=== PATIENT | female | born 1960 | race Caucasian/White ===

== ENCOUNTER → 2017-11-02 | Outpatient (CLI) | payer OTHER, BC ==
[~2017-11-02] VITALS: Ht 160 cm; Wt 95.1 kg
[~2017-11-02] MED LIST: AMLODIPINE BESY10 MG PO; EFFEXOR XR75 MG PO; ESTRACE2 MG PO; FENOFIBRATE160 MG PO; GLIPIZIDE XL10 MG PO; LANTUS SOL100 UNIT/1 SUBQ; LIPITOR 20 MG T20 M1 PO; LISINOPRIL10 MG PO; METFORMIN HCL1000 MG PO; MORPHINE SULFAT15 M3 PO; MS CONTIN15 MG PO; PLAVIX 75 MG TA75 M1 PO; PREDNISONE 1 MG1 M1 PO; PREDNISONE 5 MG5 M1 PO; VOLTAREN GEL 1100 G2 TOP; ZYRTEC10 M4 PO
--- NOTE | ~2017-11-02 | HPC ---
[facility] [place] [address] PAIN MANAGEMENT CONSULTATION Name: AZIZACHUCK Room #: REG CL MTiffanieR.#: [id number] Admission: 11/02/17 Attend Phys: Juma Rajan DO Discharge: Date of : 56 Report #: [id number] THIS REPORT FOR: //name// CC: ELISHA Rajan Physician staff DATE OF SERVICE: 11/02/2017 CHIEF COMPLAINT: Bilateral hand pain, bilateral knee pain, bilateral shoulder pain. HISTORY OF PRESENT ILLNESS: As you know, the patient is a 57-year-old female with longstanding history of pain involving the weightbearing joints due to rheumatoid arthritis. She follows with [facility] for rheumatologic treatments, but they are unwilling to provide the patient any treatment for pain management. The patient was receiving pain medications from her primary care physician, but had a change in her PCP's recently. She was referred to our clinic for medication management. She takes MS Contin 15 mg twice a day, utilizing MSIR 7.5 mg twice a day p.r.n. breakthrough pain. She states she has been on this medication for a long period of time and has noted good benefit. She returns today requesting refill on medications. She was seen by my partner, Dr. Flakito Rajan, originally and transferred to my services due to Dr. Flakito Rajan leaving our clinic. She describes today pain is burning, stabbing, constant, throbbing, places current pain score 5/10. States movement, lifting and bending exacerbate symptoms, rest and medications tend to improve pain. She has returned today in followup visit for refill of medications. ALLERGIES: ACETAMINOPHEN. CURRENT MEDICATIONS: 1. Diclofenac, morphine sulfate continuous release. 2. Morphine sulfate immediate release. 3. Zyrtec. 4. Prednisone. 5. Estradiol. 6. Lisinopril. 7. Glipizide. 8. Venlafaxine. 9. Metformin. 10. Plavix. 11. Insulin. 12. Amlodipine. 13. Fenofibrate. 14. Atorvastatin. [address] [address] PAIN MANAGEMENT CONSULTATION Name: CHUCK RAJAN Room #: REG [facility].#: [id number] Admission: 11/02/17 Attend Phys: Juma Rajan DO Discharge: Date of : 56 Report #: [id number] SOCIAL HISTORY: The patient denies tobacco, alcohol, IV or illicit drug use. She has been out of the work force since 1998. She is unaccompanied today. IMAGING: No new imaging available. PQRS: The patient has known rheumatoid arthritis. She also has symptoms of osteoarthritis. She is not a fall risk, has not had a fall in the last 3 months. She is placing pain score at 5/10. She is treated for hypertension and is on blood thinners. Pain impact score is 34/70. Pain is rated at 5/10. PHYSICAL EXAMINATION: VITAL SIGNS: Blood pressure 127/73, pulse 80, respiratory rate 16 and unlabored, the patient 98% on room air. Height 5 feet 3 inches tall, weight 209 pounds, BMI calculated 37.1. GENERAL: Well-developed, well-nourished, well-hydrated exogenously obese 57-year-old female, appearing stated age, placing pain score today 5/10. HEENT: Normocephalic, atraumatic. Pupils equal, round, reactive to light. Extraocular muscles are intact. Sclerae nonicteric, without injection. NEUROLOGIC: Cranial nerves 2-12 grossly intact. Speech is fluent. EXTREMITIES: Show no clubbing, no cyanosis, no edema. MUSCULOSKELETAL: There is palpatory tenderness over the shoulders bilaterally. There is noted decreased range of motion of the shoulders secondary to pain. There is palpatory tenderness over the knees and the lower back as well. No gross joint deformities. Weightbearing causes intensification of bilateral knee and bilateral hip pain. ASSESSMENT: 1. Rheumatoid arthritis affecting hands, knees and shoulders. 2. Complex medication management. 3. Chronic lumbar radiculopathy. 4. Chronic intractable pain. PLAN: 1. The patient returns today in followup visit for medication management. The patient's medications were initiated before seeing my partner, Dr. Flakito Rajan, then transferred to Dr. Rajan at our clinic at [facility]. Due to changes in Dr. Rajan's schedule, the patient was transferred to my clinic for ongoing medication management. The patient does follow with Rheumatology for which she receives infusions and medication for her rheumatologic issues. She returns specifically for medication management. 2. The patient was provided prescription of MS Contin 15 mg dose 1 tab p.o. b.i.d. I have given the patient releases of today, 4 weeks from today, 8 weeks from today, 3 months' worth of medication. The patient denies any side effects to medication, does feel they are beneficial. 3. We reviewed the fact that opiate medications are being used to provide [facility] [address] [place] [address] PAIN MANAGEMENT CONSULTATION Name: CHUCK RAJAN Room #: REG CLI Paieg#: [id number] Admission: 11/02/17 Attend Phys: Juma RajanDO Discharge: Date of : 56 Report #: [id number] analgesia adequate to support activities of daily living, not attempting to achieve a specific pain score on the 0-10 Visual Analog Scale. The current opiate medications are providing sufficient analgesia to allow the patient to participate in activities of daily living. The patient is not exhibiting any aberrant behavior suggestive of drug diversion. The patient is not having any adverse reactions to medications. The patient is not suffering from daytime somnolence or mental acuity changes. The patient is managing opiate-induced constipation with appropriate qumk-zdn-pytpzgd agents and dietary considerations. The patient was counseled on concern for caution with operating a motor vehicle while using opiate medications. A physical exam was performed and the patient's functional status was evaluated. All patients with back pain were advised against the bed rest greater than 4 days and were advised to return to normal activities. Pain score assessment was noted and the treatment plan was reviewed with the patient. All current medications, both prescribed and OTC were reviewed and reconciled on the electronic medical record. Tobacco screening was accomplished and smoking cessation was advised when indicated. BMI was noted and diet/exercise modification was recommended for all patients following outside normal parameters. I reviewed with the patient today their responsibilities to safeguard prescription medications, reviewed their responsibility to utilize medications only as prescribed by the physician. They are to seek and receive pain medications only from 1 physician group ( [facility]). They are to use 1 pharmacy and keep the clinic informed if they change pharmacies. Their responsibilities include making followup visits in a timely fashion and to avoid abrupt discontinuation of medication usage. Their responsibilities further include bringing their medications (bottles from the pharmacy with residual pills) to the visit for possible confirmation of pill counts and the patient understands it is their responsibility to submit to random drug screens to ensure both that the medications prescribed are present, and that no other controlled substances are present. All prescriptions provided today were generated electronically. 4. The patient was provided prescription of MS IR 15 mg dose one-half tab p.o. b.i.d. I have given the patient #30 tablets, releases of today, 4 weeks from today, 8 weeks from today, 3 months' worth of medication. 5. The patient will return to our clinic in 3 months for medication management and discuss possible alteration in therapy depending on changes in CDC's policy. <ELECTRONICALLY SIGNED> By: Juma Rajan DO 11/09/17 [id number] Juma Rajan DO /nt
[2017-11-02 09:49] VITALS: BP 127/73
== END ==
LOC: PAIN 07:15
DX: M06.842 Other specified rheumatoid arthritis, left hand (principal); M06.841 Other specified rheumatoid arthritis, right hand; M06.862 Other specified rheumatoid arthritis, left knee; M06.861 Other specified rheumatoid arthritis, right knee; M06.812 Other specified rheumatoid arthritis, left shoulder; M06.811 Other specified rheumatoid arthritis, right shoulder; M54.16 Radiculopathy, lumbar region; G89.4 Chronic pain syndrome; Z79.899 Other long term (current) drug therapy

== ENCOUNTER → 2018-01-25 | Outpatient (CLI) | payer OTHER, BC ==
[~2018-01-25] VITALS: Ht 160 cm; Wt 95.3 kg
--- NOTE | ~2018-01-25 | HPC ---
[facility] [address] [place] [address] PAIN MANAGEMENT CONSULTATION Name: CHUCK ERVIN Room #: REG [facility] Louann.#: [id number] Admission: 01/25/18 Attend Phys: Elina Lopez Discharge: Date of : 56 Report #: [id number] THIS REPORT FOR: //name// CC: Elina ROSAS Physician staff DATE OF SERVICE: 01/25/2018 CHIEF COMPLAINT: Bilateral hand pain, bilateral knee pain, bilateral shoulder pain. HISTORY OF PRESENT ILLNESS: This is a 57-year-old female with longstanding history of pain in all of her joints due to her rheumatoid arthritis. She tells me that her shoulder pain has increased over the last few months and that is her major complaint today, though she does tell me that her knees and hips also hurt. The patient tells me that she used to get her shoulders injected by orthopedic that has been several years ago. She had a recent x-ray done at [facility] though that is not with her presently today and would like another injection as well as a refill of her medications. The patient tells me she has a pain score today of 5/10. Her pain is worse with moving, lifting, bending, but the medication and the rest do help her. The patient would like a refill and an injection in her shoulders today. ALLERGIES: ACETAMINOPHEN. LIST OF CURRENT MEDICATIONS: Morphine sulfate IR half a tablet twice a day, MS Contin 15 mg twice a day, diclofenac gel as needed to extremities, Zyrtec 10 mg daily, prednisone 5 mg daily, prednisone 1 mg twice a day, Estrace 2 mg tablets daily, Zestril 20 mg daily, glipizide 20 mg daily, Effexor XR 75 mg daily, metformin 1000 mg twice a day, Plavix 75 mg daily, Lantus varying dose at bedtime, amlodipine 10 mg daily, fenofibrate 160 mg daily and Lipitor 20 mg at bedtime. PQRS: She has a history of osteoarthritis in her shoulders, knees and hips and rheumatoid arthritis in all of her joints as well and is being treated for arthritis. Height is 5 feet 3 inches, weight is 210 pounds, BMI is 37.2. Vital signs: Blood pressure 147/90, pulse is 81, respirations 16, oxygen sat is 98, pain score is 5/10. Fall risk: Denies dizziness. Does not need help walking or standing. Has not fallen in the last 3 months. The patient takes Plavix as a blood thinner and has medicines for hypertension. Her opioid therapy is greater than 6 weeks; therefore, an opioid signed contract is on the chart. Her risk assessment tool is low and her functional assessment is 24/70. Recreational drug use, she denies. She does not smoke currently, but has in the past and does not drink alcohol. We checked her prescription monitoring system, the patient is filling appropriately from doctors in our clinic for all of her [address] [address] PAIN MANAGEMENT CONSULTATION Name: CHUCK ERVIN Room #: REG JANINE Gibson#: [id number] Admission: 01/25/18 Attend Phys: Elina Lopez Discharge: Date of : 56 Report #: [id number] narcotics. The patient tells me she does safeguard her medications. PHYSICAL EXAMINATION: GENERAL: This is a well-developed, well-nourished, well-hydrated, exogenous obese 57-year-old that appears her stated age. Placing her pain score today 5/10. HEENT: Normocephalic, atraumatic. Pupils equal, round and reactive to light. Extraocular muscles are intact. EXTREMITIES: No clubbing, no cyanosis, no edema. MUSCULOSKELETAL: There is diffuse tenderness over bilateral shoulders, knees and back. Gait is tandem, mostly antalgic. The patient does complain of burning in her joints as well. IMPRESSION: 1. Chronic lumbar radiculopathy, rheumatoid arthritis affecting hands, knees and shoulders. 2. Traumatic brain injury. 3. Complex medical management. 4. Chronic intractable pain. 5. History of myocardial infarction. We reviewed the fact that opiate medications are being used to provide analgesia adequate to support activities of daily living, not attempting to achieve a specific pain score on the 0-10 Visual Analog Scale. The current opiate medications are providing sufficient analgesia to allow the patient to participate in activities of daily living. The patient is not exhibiting any aberrant behavior suggestive of drug diversion. The patient is not having any adverse reactions to medications. The patient is not suffering from daytime somnolence or mental acuity changes. The patient is managing opiate-induced constipation with appropriate zftc-zit-cdkjddr agents and dietary considerations. The patient was counseled on concern for caution with operating a motor vehicle while using opiate medications. A physical exam was performed and the patient's functional status was evaluated. All patients with back pain were advised against the bed rest greater than 4 days and were advised to return to normal activities. Pain score assessment was noted and the treatment plan was reviewed with the patient. All current medications, both prescribed and OTC were reviewed and reconciled on the electronic medical record. Tobacco screening was accomplished and smoking cessation was advised when indicated. BMI was noted and diet/exercise modification was recommended for all patients following outside normal parameters. I reviewed with the patient today their responsibilities to safeguard prescription medications, reviewed their responsibility to utilize medications only as prescribed by the physician. They are to seek and receive pain [facility] [address] [place] [address] PAIN MANAGEMENT CONSULTATION Name: CHUCK ERVIN [facility] #: [facility]#: [id number] Admission: 01/25/18 Attend Phys: Elina Lopez Discharge: Date of : 56 Report #: [id number] medications only from 1 physician group ( [facility]). They are to use 1 pharmacy and keep the clinic informed if they change pharmacies. Their responsibilities include making followup visits in a timely fashion and to avoid abrupt discontinuation of medication usage. Their responsibilities further include bringing their medications (bottles from the pharmacy with residual pills) to the visit for possible confirmation of pill counts and the patient understands it is their responsibility to submit to random drug screens to ensure both that the medications prescribed are present, and that no other controlled substances are present. All prescriptions provided today were generated electronically. PLAN: 1. The patient's treatment options were discussed today. The patient would like a refill of her morphine sulfate and tells me that it is working well in controlling her pain. Script was given today for morphine sulfate 15 mg ER, #60 for today and 4-week and 8-week release. Scripts also for MS IR 15 mg a half a tablet twice a day, quantity 30 for today, 4-week and 8-week release. 2. The patient would like to have her shoulders injected. I discussed with the patient that she is being seen for medication management only today. We would need to schedule another appointment for shoulder injection plus the patient is on Plavix. The patient tells me she is seeing her chairman & ceo tomorrow. It has been 1 year since she has been on Plavix and is hopeful to be taken off of it for good after tomorrow. I instructed the patient to have in writing from the chairman & ceo that it is okay for her to be off her Plavix for 7 days if he does keep her on this medicine longer than tomorrow. If she is off of it for a good starting tomorrow, then there will be no problem in giving her shoulder injection in February. 3. We have no recent films or x-ray reports from shoulder injections. The patient tells me she did have one done about a month ago at [facility]. She is seeing her primary doctor on 02/02/2018. The patient will obtain those results and film and bring it to her appointment in February with Dr. Ervin for her shoulder injection. The patient is agreeable with this plan of care. 4. Appointment will be made for early in the New Year. The patient is seen today in collaboration with Dr. Juma Ervin. <ELECTRONICALLY SIGNED> By: Elina Lopez 01/26/18 0724 [id number] [id number] Elina Lopez /gricel
[2018-01-25 09:54] VITALS: BP 147/90
== END ==
LOC: PAIN 09:27
DX: M06.842 Other specified rheumatoid arthritis, left hand (principal); M06.841 Other specified rheumatoid arthritis, right hand; M06.862 Other specified rheumatoid arthritis, left knee; M06.861 Other specified rheumatoid arthritis, right knee; M06.811 Other specified rheumatoid arthritis, right shoulder; M06.812 Other specified rheumatoid arthritis, left shoulder; G89.4 Chronic pain syndrome; M54.16 Radiculopathy, lumbar region; I25.2 Old myocardial infarction; Z79.899 Other long term (current) drug therapy

== ENCOUNTER → 2018-02-15 | Outpatient (CLI) | payer OTHER, BC ==
[~2018-02-15] VITALS: Ht 160 cm; Wt 94.5 kg
--- NOTE | ~2018-02-15 | HPC ---
[facility] [place] [address] [place] [address] PAIN MANAGEMENT CONSULTATION Name: CHUCK ERVIN Room #[facility]#: [id number] Admission: 02/15/18 Attend Phys: Juma Ervin DO Discharge: Date of : 56 Report #: [id number] THIS REPORT FOR: //name// CC: Andrzej Ervin Physician staff DATE OF SERVICE: 02/15/2018 REFERRING PHYSICIAN: Dr. Andrzej Bowers. CHIEF COMPLAINT: Bilateral shoulder pain. HISTORY OF PRESENT ILLNESS: As you know, the patient is a 58-year-old female who returns today in followup visit with concern of bilateral shoulder pain. She returns requesting to undergo bilateral intra-articular shoulder injections under fluoroscopic guidance. The patient reports she had good efficacy with these injections in the past provided by orthopedic surgeon. She indicates no injury or trauma to the bilateral shoulders that may have led to symptom occurrence. It does appear that the patient has had longstanding bilateral shoulder pain for a prolonged period of time. She returns today requesting intra-articular shoulder injections to be performed. She denies any anticoagulant therapy. She indicates pain is exacerbated with certain movements and activities. ALLERGIES: ACETAMINOPHEN. CURRENT MEDICATIONS: MS Contin 15 mg b.i.d., MSIR 15 mg 1/2 tab twice a day, Voltaren gel applied topically up to 4 times a day, Zyrtec 10 mg per day, prednisone 5 mg per day, estradiol 2 mg once a day, lisinopril 10 mg once a day, glipizide XL 10 mg once a day, Effexor 75 mg once a day, metformin 1000 mg twice a day, amlodipine 10 mg once a day, fenofibrate 160 mg once a day, atorvastatin 20 mg once a day. SOCIAL HISTORY: The patient denies tobacco, alcohol, IV or illicit drug use. She is unaccompanied today. PQRS: The patient has known osteoarthritic change of the shoulders, bilateral knees, bilateral hips. She reports history of rheumatoid arthritis, being treated by a elementary librarian. She is placing pain intensity of 6-7/10. She is not a fall risk, has not had a fall in the last 3 months. She has been off her blood thinner for 7 days in preparation for today's procedure. She is treated for hypertension. She is on chronic opioids. She has a low opioid addiction potential. Pain impact score 24/70 indicating agzu-we-vrprsqkq interference of daily activities secondary to pain. [address] [address] PAIN MANAGEMENT CONSULTATION Name: CHUCK ERVIN Room #: REG CLI [facility]#: [id number] Admission: 02/15/18 Attend Phys: Juma Ervin DO Discharge: Date of : 56 Report #: [id number] PHYSICAL EXAMINATION: VITAL SIGNS: Blood pressure 128/71, pulse 83, respiratory rate 14 and unlabored. The patient is 97% on room air. Height 5 feet 3 inches tall, weight 208.4 pounds, BMI calculated 36.9. GENERAL: Well-developed, well-nourished, well-hydrated, exogenously obese 58-year-old female appearing stated age, placing current pain score 6-7/10. HEENT: Normocephalic, atraumatic. Pupils equal, round, reactive to light. EXTREMITIES: Show no clubbing, no cyanosis, no edema. MUSCULOSKELETAL: Active and passive range of motion bilateral shoulders met with increasing pain. There does not appear to be any restriction in motion based on the physical exam. Muscle bulk and tone equal and symmetrical in upper extremities. Strength is 5/5 with slight giveaway strength with abduction of the shoulders bilaterally. ASSESSMENT: 1. Bilateral shoulder pain. 2. Bilateral shoulder osteoarthritis. 3. Chronic intractable pain. PLAN: 1. The patient returns today in followup visit to undergo bilateral intra-articular shoulder injections under fluoroscopic guidance. The patient reports she has had these in the past and they worked well for pain control. She requests to undergo the procedure in hopes of improving pain. I advised the patient of the risks and benefits of this procedure. These risks include, but are not necessarily limited to bleeding, bruising, infection, worsening pain, no relief of pain, also risk of temporary or permanent muscle weakness, temporary or permanent nerve damage, possible joint destruction and . The patient states understood and wished to proceed. 2. No medication changes made at today's visit. The patient to continue current medical therapy as previously prescribed. 3. The patient to return to our clinic on an as needed basis for possible next in the series of bilateral intra-articular shoulder injections. PROCEDURE NOTE DESCRIPTION OF PROCEDURE: Bilateral intra-articular shoulder injections under fluoroscopic guidance. After obtaining written consent, the patient was taken back to fluoroscopy suite, placed in a supine position. The image intensifier was then brought into position over the left shoulder and AP imaging was obtained. The area was then sterilely prepped with chlorhexidine. A sterile marker was then placed over the injection site. A 27-gauge 1-1/4 inch needle was then used to anesthetize skin and subcutaneous tissue with 2 mL of 1% lidocaine. [address] [address] PAIN MANAGEMENT CONSULTATION Name: CHUCK ERVIN Room #: REG CLI [facility]#: [id number] Admission: 02/15/18 Attend Phys: Juma JoriTiffanie Ervin DO Discharge: Date of : 56 Report #: [id number] A 25-gauge 2-inch needle was advanced under fluoroscopic guidance to the proximal head of the humerus on the left. Needle was advanced until reaching the osseous structures. It was then retracted approximately 1 mm, noted to be aspiration negative for heme. After negative aspiration for heme, 0.4 mL of Omnipaque injected demonstrating an excellent left shoulder arthrogram. After negative aspiration for heme, 3 mL of a solution containing 1 mL 40 mg per mL, 40 mg total triamcinolone, 2 mL bupivacaine 0.5% injected slowly. Needle retracted custodial, flushed with 1 mL of 1% lidocaine and removed. Sterile bandage placed over injection site. There were no new motor deficits present in the left upper extremity following the procedure. Our attention was then directed to the right shoulder. The image intensifier was then brought into position over the right shoulder and AP imaging was obtained. The area was then prepped and draped in aseptic fashion using chlorhexidine. A sterile marker was then placed over the injection site. 2 mL wheal of lidocaine 1% was used to anesthetize skin and subcutaneous tissue with a 27-gauge 1-1/4 inch needle. A 25-gauge 2-inch needle was then advanced under fluoroscopic guidance towards the proximal head of the right humerus. Needle was advanced until reaching the osseous structure, then retracted approximately 1 mm. After negative aspiration for heme, 0.3 mL of Omnipaque injected demonstrating a right shoulder arthrogram. After negative aspiration for heme, 3 mL of a solution containing 1 mL 40 mg per mL, 40 mg total triamcinolone, 2 mL of bupivacaine 0.5% injected slowly. Needle was retracted custodial, flushed with 1 mL of 1% lidocaine and removed. Sterile bandage placed over injection site. No new motor deficits present in the right upper extremity following procedure. The patient tolerated the procedure well, carefully escorted to the recovery room in stable condition. No apparent complications. VAS before procedure 08/17. VAS after the procedure 03/20. After meeting our discharge criteria, the patient discharged home. By: [id number] Juma Ervin DO /nt
[2018-02-15 11:30] VITALS: BP 128/71
--- NOTE | 2018-02-15 11:37 | NUR ---
Pain Clinic Assessment: 1. History of Osteoarthritis: ALL JOINTS History of Rheumatoid Arthritis: ALL JOINTS 2. Height: 5 ft. 3 in. 160.0 cm. Weight: 208.4 lb. oz. 94.530 kg. Patient's BMI: 36.9 3. Vital Signs: BP: 128/71 Pulse: 83 Resp: 14 Temp: 02 Sat: 97 ECG Mon: 4. Pain Intensity: 6-7 5. Fall Risk: Dizziness: N Needs help standing or walking: N Fallen in the last 3 months: N Fall risk comments: 6. Patient on Blood Thinner: Clopidogrel Bisulf(Plavix 7. History of Hypertension: Y 8. Opioid Therapy greater than 6 weeks: Y Opiate Contract Signed: 9. Risk Assessment Tool Provided: BRIDGETT 10. Functional Assessment Tool: 11. Recreational Drug Use: Never Drug Type: Tobacco Use: Former Smoker Tobacco Type: Amount or Packs/day: How Many Years: Alcohol Use: No Frequency: Quant:
== END | disposition home or self-care (01) ==
LOC: PAIN 07:31
DX: M19.012 Primary osteoarthritis, left shoulder (principal); M19.011 Primary osteoarthritis, right shoulder; G89.29 Other chronic pain; M17.0 Bilateral primary osteoarthritis of knee; M16.0 Bilateral primary osteoarthritis of hip; I10 Essential (primary) hypertension; E66.9 Obesity, unspecified; Z88.8 Allergy status to other drugs, medicaments and biological substances; Z79.899 Other long term (current) drug therapy; Z79.84 Long term (current) use of oral hypoglycemic drugs; Z68.36 Body mass index [BMI] 36.0-36.9, adult; Z79.4 Long term (current) use of insulin; Z87.891 Personal history of nicotine dependence

== ENCOUNTER → 2018-05-17 | Outpatient (CLI) | payer OTHER, BC ==
[~2018-05-17] VITALS: Ht 160 cm; Wt 90.3 kg
[~2018-05-17] MED LIST changes: +BUSPIRONE HCL10 MG PO; +OXYBUTYNIN 5 MG5 M2 PO
[2018-05-17 09:48] VITALS: BP 119/73
--- NOTE | 2018-05-17 10:04 | NUR ---
Pain Clinic Assessment: 1. History of Osteoarthritis: ALL JOINTS History of Rheumatoid Arthritis: ALL JOINTS 2. Height: 5 ft. 3 in. 160.0 cm. Weight: 199.0 lb. oz. 90.266 kg. Patient's BMI: 35.3 3. Vital Signs: BP: 119/73 Pulse: 85 Resp: 22 Temp: 02 Sat: 98 ECG Mon: 4. Pain Intensity: 10 5. Fall Risk: Dizziness: N Needs help standing or walking: Y Fallen in the last 3 months: N Fall risk comments: 6. Patient on Blood Thinner: Clopidogrel Bisulf(Plavix 7. History of Hypertension: Y 8. Opioid Therapy greater than 6 weeks: Y Opiate Contract Signed: 9. Risk Assessment Tool Provided: OTHA 10. Functional Assessment Tool: 11. Recreational Drug Use: Never Drug Type: Tobacco Use: Former Smoker Tobacco Type: Amount or Packs/day: How Many Years: Alcohol Use: No Frequency: Quant:
--- NOTE | 2018-05-18 08:08 | HPC ---
[facility] [address] [address] PAIN MANAGEMENT CONSULTATION Name: AZIZACHUCK CALABRESEE Room #: REG CL Paige#: [id number] Admission: 05/17/18 ������������������ Attend Phys: Elina Lopez Discharge: ������������������ Date of : 56 Report #: [id number] THIS REPORT FOR: //name// CC: Elina ROSAS Physician staff DATE OF SERVICE: 05/17/2018 CHIEF COMPLAINT: Bilateral shoulder pain and right knee pain. HISTORY OF PRESENT ILLNESS: This is a 58-year-old female who returns to the clinic today for refill of her pain medication. Last time that we saw her, Dr. Juma Ervin did a bilateral shoulder injection. The patient tells me that she was at least 75% better in both her shoulders and still feeling better. She feels like they are just starting to wear off. She is mostly complaining today of right knee pain. She tells me that she has had ongoing issues in her knees and sees orthopedic quite regularly and has multiple surgeries. She thinks that she needs to go see her orthopedic again for a recent flareup. She is using a cane today because she feels like her leg gives out that she has not fallen. She rates her pain today of 10/10, again mostly in that right knee. It is an aching, throbbing sore pain, but her medications are helpful as well as resting. She is in a wheelchair today and also has her cane present. She tells me that she does not have any problems with constipation and does not have any daytime sleepiness. She is not sleeping well at night, but that is due to some home stress situations, not related to medications. The patient does tell me that she just recently started on oxybutynin and buspirone a couple of weeks ago and feels like these have been helpful. ALLERGIES: ACETAMINOPHEN. CURRENT LIST OF MEDICATIONS: Oxybutynin 10 mg b.i.d., buspirone 10 mg b.i.d., morphine sulfate 15 mg b.i.d., morphine IR 15 mg 1/2 tablet twice a day, diclofenac gel as needed, Zyrtec as needed, prednisone 1 mg b.i.d., Estrace 2 mg daily, lisinopril 20 mg daily, glipizide 20 mg daily, Effexor 75 mg b.i.d., metformin 1000 mg b.i.d., Plavix 75 mg daily, insulin according to sliding scale, amlodipine 10 mg daily, fenofibrate 160 mg daily, atorvastatin 20 mg at bedtime. PQRS: 1. The patient has arthritic changes in her shoulders, hips and knees. She reports a history of rheumatoid arthritis and being seen by a rheumatoid doctor. 2. Height is 5 feet 3 inches, weight is 199, BMI is 35. 3. Vital signs: Blood pressure 119/73, pulse is 85, respirations 22, oxygen sat is 98%. 4. Pain score is 10/10. [address] [address] PAIN MANAGEMENT CONSULTATION Name: CHUCK ERVIN Room #: FABY Gibson#: [id number] Admission: 05/17/18 ������������������ Attend Phys: Elina Lopez Discharge: ������������������ Date of : 56 Report #: [id number] 5. Fall risk. Denies dizziness. Does need help walking, uses a cane and today is in a wheelchair, has not fallen in the last 3 months. 6. The patient is on Plavix, blood thinner and does take medicines for hypertension. 7. Opiate therapy is greater than 6 weeks. Therefore, an opioid signed contract is on the chart. 8. Risk assessment tool is low. Her functional assessment is . 9. Recreational drug use, she denies. She is a former smoker and does not drink alcohol. We did check the prescription monitoring system. The patient is filling appropriately from Dr. Juma Ervin. It looks like there is a couple fills that says Pipo Dhillon, but those were actually Dr. Juma Ervin's prescriptions that we wrote in January. We will check a drug screen on the patient today since there is not one on the chart here at [facility]. She is a transfer from [place] and they had random screens at that location. PHYSICAL EXAMINATION: GENERAL: This is a well-developed, well-nourished, well-hydrated, exogenously obese 58-year-old female who appears her stated age. Placing her pain score today at 10/10. HEENT: Normocephalic, atraumatic. Pupils equal, round and reactive to light. EXTREMITIES: No clubbing, no cyanosis, no edema. Does complain of right knee pain. MUSCULOSKELETAL: Active and passive range of motion of the shoulders, has limited pain with this. Her strength is 5/5 in bilateral upper extremities and muscle tone and strength. ASSESSMENT: 1. Bilateral shoulder pain. 2. Bilateral shoulder osteoarthritis. 3. Chronic intractable pain. 4. Right knee pain. We reviewed the fact that opiate medications are being used to provide analgesia adequate to support activities of daily living, not attempting to achieve a specific pain score on the 0-10 Visual Analog Scale. The current opiate medications are providing sufficient analgesia to allow the patient to participate in activities of daily living. The patient is not exhibiting any aberrant behavior suggestive of drug diversion. The patient is not having any adverse reactions to medications. The patient is not suffering from daytime somnolence or mental acuity changes. The patient is managing opiate-induced constipation with appropriate smbi-tmz-auoirdc agents and dietary considerations. The patient was counseled on concern for caution with operating a motor vehicle while using opiate medications. [address] [address] PAIN MANAGEMENT CONSULTATION Name: CHUCK ERVIN Room #: REG JANINE Gibson#: [id number] Admission: 05/17/18 ������������������ Attend Phys: Elina Lopez Discharge: ������������������ Date of : 56 Report #: [id number] A physical exam was performed and the patient's functional status was evaluated. All patients with back pain were advised against the bed rest greater than 4 days and were advised to return to normal activities. Pain score assessment was noted and the treatment plan was reviewed with the patient. All current medications, both prescribed and OTC were reviewed and reconciled on the electronic medical record. Tobacco screening was accomplished and smoking cessation was advised when indicated. BMI was noted and diet/exercise modification was recommended for all patients following outside normal parameters. I reviewed with the patient today their responsibilities to safeguard prescription medications, reviewed their responsibility to utilize medications only as prescribed by the physician. They are to seek and receive pain medications only from 1 physician group ([facility]). They are to use 1 pharmacy and keep the clinic informed if they change pharmacies. Their responsibilities include making followup visits in a timely fashion and to avoid abrupt discontinuation of medication usage. Their responsibilities further include bringing their medications (bottles from the pharmacy with residual pills) to the visit for possible confirmation of pill counts and the patient understands it is their responsibility to submit to random drug screens to ensure both that the medications prescribed are present, and that no other controlled substances are present. All prescriptions provided today were generated electronically. PLAN: 1. We discussed treatment options with the patient today. The patient tells me since she moved her appointment, she has been taking a few less of her medicine trying to reach this appointment today and did not take her last medication pill this morning and needs refills. Typically, she will take her morphine 15 mg twice a day and her IR breakthrough pain medicine 1/2 tablet twice a day if she needs it. Wednesday, she is able to get by with only 1/2 a tablet, this is why she was able to last a couple of weeks past her original fill. Prescriptions given today for morphine ER 15 mg b.i.d., #60 for today, 4-week release and 8-week release and morphine sulfate IR 15 mg 1/2 a tablet b.i.d., #30 for today release, 4-week release and 8-week release. 2. The patient will give us a specimen for random drug screen. 3. The patient will follow up in 3 months' time period unless she needs another shoulder injection before then. The patient verbalizes understanding. 4. The patient is seen in collaboration today with Dr. Juma Ervin. ��������������������������������������������� <ELECTRONICALLY SIGNED> ���������������������������������������� By: Elina Lopez ��������������������������������������������� 05/18/18 [id number] Elina Lopez /gricel
== END ==
LOC: PAIN 05-03 13:40
DX: M19.012 Primary osteoarthritis, left shoulder (principal); M19.011 Primary osteoarthritis, right shoulder; G89.4 Chronic pain syndrome; M25.561 Pain in right knee

== ENCOUNTER → 2018-08-16 | Outpatient (CLI) | payer OTHER, BC ==
[~2018-08-16] VITALS: Ht 160 cm; Wt 84.6 kg
[2018-08-16 09:29] VITALS: BP 101/68
--- NOTE | 2018-08-16 09:47 | NUR ---
Pain Clinic Assessment: 1. History of Osteoarthritis: ALL JOINTS History of Rheumatoid Arthritis: ALL JOINTS 2. Height: 5 ft. 3 in. 160.0 cm. Weight: 186.4 lb. oz. 84.551 kg. Patient's BMI: 33.0 3. Vital Signs: BP: 101/68 Pulse: 79 Resp: 16 Temp: 02 Sat: 100 ECG Mon: 4. Pain Intensity: 7 5. Fall Risk: Dizziness: N Needs help standing or walking: N Fallen in the last 3 months: N Fall risk comments: 6. Patient on Blood Thinner: Clopidogrel Bisulf(Plavix 7. History of Hypertension: Y 8. Opioid Therapy greater than 6 weeks: Y Opiate Contract Signed: 9. Risk Assessment Tool Provided: OLiliLOW 10. Functional Assessment Tool: 11. Recreational Drug Use: Never Drug Type: Tobacco Use: Former Smoker Tobacco Type: Amount or Packs/day: How Many Years: Alcohol Use: No Frequency: Quant:
--- NOTE | 2018-08-18 09:21 | HPC ---
[facility] [address] [address] PAIN MANAGEMENT CONSULTATION Name: CHUCK ERVIN Room #: REG [facility] Louann.#: [id number] Admission: 08/16/18 ������������������ Attend Phys: Elina Lopez Discharge: ������������������ Date of : 56 Report #: [id number] THIS REPORT FOR: //name// CC: Elina ROSAS Physician staff DATE OF SERVICE: 08/16/2018 CHIEF COMPLAINT: Bilateral shoulder pain and right knee pain. HISTORY OF PRESENT ILLNESS: This is a pleasant 58-year-old female, who returns to the pain clinic today for refill of her medications that she uses to help treat her shoulder discomfort and right knee pain. She tells me that previously she has had injections in her shoulder that was very beneficial in controlling her pain. She tells me that her adjunct lecturer and primary care doctor have been decreasing her prednisone due to high blood sugars; therefore, she is having increased joint pain. Her pain score today is 7/10, mostly a throbbing, aching pain in her shoulders and right knee. Her medication is helpful, but not as beneficial as when her prednisone was at a higher level. She would like refills of her medications today. ALLERGIES: TYLENOL. CURRENT MEDICATIONS: Prednisone 3 mg daily, morphine sulfate ER 15 mg b.i.d., morphine sulfate IR 7.5 b.i.d., oxybutynin, buspirone, Voltaren gel, Zyrtec, Estrace, Zestril, glipizide, Effexor, metformin, Plavix, Lantus, amlodipine, fenofibrate and atorvastatin. THE PATIENT'S PQRS: 1. She has arthritic changes in her bilateral shoulders, hips and knees. She is being treated for rheumatoid arthritis. 2. Height is 5 feet 3 inches, weight is 186, BMI is 33. 3. Vital signs; blood pressure 101/68, pulse is 79, respirations 16, oxygen sat is 100. 4. Pain score is 7/10. 5. Fall risk. Denies dizziness, does not need help walking or standing, has not fallen in the last 3 months. 6. The patient is on Plavix. She does take medicine for hypertension. 7. Opiate therapy is greater than 6 weeks; therefore, an opiate signed contract is on the chart. Her risk assessment tool is low. Functional assessment is . 8. Recreational drug use, she denies. She is a former smoker and does not drink alcohol. [address] [address] PAIN MANAGEMENT CONSULTATION Name: CHUCK ERVIN [id number] Admission: 08/16/18 ������������������ Attend Phys: Elina Lopez Discharge: ������������������ Date of : 56 Report #: [id number] We did check the prescription monitoring system. The patient is filling appropriately for her medications and is due for those today. There is a recent drug screen on the chart that is appropriate for the medications with no aberrant behaviors noted. PHYSICAL EXAMINATION: GENERAL: This is a well-developed, well-nourished, well-hydrated, exogenous, obese 58-year-old female, who appears her stated age, placing her pain score today at 7/10. HEENT: Normocephalic, atraumatic. Pupils equal, round and reactive to light. EXTREMITIES: Does complain of right knee pain, but no clubbing, no cyanosis, no edema. MUSCULOSKELETAL: She has active and passive range of motion in her shoulders, has limited pain with this. Her strength in her upper extremities is 5/5 with equal muscle tone and strength. ASSESSMENT: 1. Bilateral shoulder pain. 2. Bilateral shoulder osteoarthritis. 3. Chronic intractable pain. 4. Right knee pain. We reviewed the fact that opiate medications are being used to provide analgesia adequate to support activities of daily living, not attempting to achieve a specific pain score on the 0-10 Visual Analog Scale. The current opiate medications are providing sufficient analgesia to allow the patient to participate in activities of daily living. The patient is not exhibiting any aberrant behavior suggestive of drug diversion. The patient is not having any adverse reactions to medications. The patient is not suffering from daytime somnolence or mental acuity changes. The patient is managing opiate-induced constipation with appropriate pcro-mst-elvmatw agents and dietary considerations. The patient was counseled on concern for caution with operating a motor vehicle while using opiate medications. A physical exam was performed and the patient's functional status was evaluated. All patients with back pain were advised against the bed rest greater than 4 days and were advised to return to normal activities. Pain score assessment was noted and the treatment plan was reviewed with the patient. All current medications, both prescribed and OTC were reviewed and reconciled on the electronic medical record. Tobacco screening was accomplished and smoking cessation was advised when indicated. BMI was noted and diet/exercise modification was recommended for all patients following outside normal parameters. I reviewed with the patient today their responsibilities to [facility] [address] [place] [address] PAIN MANAGEMENT CONSULTATION Name: CHUCK ERVIN Room #: REG CLReggie Gibson#: [id number] Admission: 08/16/18 ������������������ Attend Phys: Elina Lopez Discharge: ������������������ Date of : 56 Report #: [id number] prescription medications, reviewed their responsibility to utilize medications only as prescribed by the physician. They are to seek and receive pain medications only from 1 physician group ( [facility]). They are to use 1 pharmacy and keep the clinic informed if they change pharmacies. Their responsibilities include making followup visits in a timely fashion and to avoid abrupt discontinuation of medication usage. Their responsibilities further include bringing their medications (bottles from the pharmacy with residual pills) to the visit for possible confirmation of pill counts and the patient understands it is their responsibility to submit to random drug screens to ensure both that the medications prescribed are present, and that no other controlled substances are present. All prescriptions provided today were generated electronically. PLAN: 1. We discussed treatment options with the patient today. The patient tells me that she is having increased pain since they are decreasing her prednisone. I encouraged her to use her Voltaren gel that is listed on her medication record. She tells me she does not take that medicine, she is unaware of it. She tells me that she has had some diclofenac pills in the past. I encouraged her to discuss with her primary care doctor about the diclofenac gel that she could use on her shoulders and her knees to family helper in her discomfort while they are adjusting her prednisone. The patient is on Plavix, so she is unable to take oral nonsteroidal anti-inflammatories. 2. Scripts given today for morphine ER 15 mg b.i.d., #60 for today, 4-week and 8-week release and morphine IR 15 mg half a tablet twice a day, #30, for 3 months as well. 3. This places the patient well under the CDC guidelines at 45; therefore, she comes every 3 months for her medication appointments. 4. The patient is seen in collaboration with Dr. Juma Ervin today, who did see the patient as well and collaborated care. ��������������������������������������������� <ELECTRONICALLY SIGNED> ���������������������������������������� By: Elina Lopez ��������������������������������������������� 08/18/18 0921 [id number] Elina Lopez /nt
== END ==
LOC: PAIN 06:45
DX: M19.011 Primary osteoarthritis, right shoulder (principal); M19.012 Primary osteoarthritis, left shoulder; M25.561 Pain in right knee; G89.4 Chronic pain syndrome; Z79.899 Other long term (current) drug therapy

== ENCOUNTER → 2018-11-22 | Outpatient (CLI) | payer OTHER, BC ==
[~2018-11-22] VITALS: Ht 160 cm; Wt 80.3 kg
[~2018-11-22] MED LIST changes: +ESTRACE2 M3 PO; -ESTRACE2 MG PO; +ORENCIA50 MG/0.4 SUBQ; +TRAZODONE HCL50 MG PO
[2018-11-22 09:12] VITALS: BP 117/77
--- NOTE | 2018-11-22 09:38 | NUR ---
Pain Clinic Assessment: 1. History of Osteoarthritis: ALL JOINTS History of Rheumatoid Arthritis: ALL JOINTS 2. Height: 5 ft. 3 in. 160.0 cm. Weight: 177.0 lb. oz. 80.287 kg. Patient's BMI: 31.4 3. Vital Signs: BP: 117/77 Pulse: 88 Resp: 16 Temp: 02 Sat: 100 ECG Mon: 4. Pain Intensity: 6 5. Fall Risk: Dizziness: N Needs help standing or walking: N Fallen in the last 3 months: Y Fall risk comments: 6. Patient on Blood Thinner: Clopidogrel Bisulf(Plavix 7. History of Hypertension: Y 8. Opioid Therapy greater than 6 weeks: Y Opiate Contract Signed: 9. Risk Assessment Tool Provided: OTHA 10. Functional Assessment Tool: 11. Recreational Drug Use: Never Drug Type: Tobacco Use: Former Smoker Tobacco Type: Amount or Packs/day: How Many Years: Alcohol Use: No Frequency: Quant:
--- NOTE | 2018-11-23 08:34 | HPC ---
[facility] [place] [address] PAIN MANAGEMENT CONSULTATION Name: CHUCK ERVIN Room #: [facility]#: [id number] Admission: 11/22/18 Attend Phys: Elina Lopez Discharge: Date of : 56 Report #: [id number] THIS REPORT FOR: //name// CC: Elina ROSAS Physician staff DATE OF SERVICE: 11/22/2018 CHIEF COMPLAINT: Bilateral shoulder pain and bilateral knee pain. HISTORY OF PRESENT ILLNESS: This is a very pleasant 58-year-old female who returns to the pain clinic today for refill of her medications that she uses to help treat her ongoing shoulder and knee pain. She reports her pain score is a 6/10 today, is an aching, sore, throbbing pain mostly when she walks and stands for prolonged periods of time, but she finds her medication and resting helpful. The patient reports that recently she had had a possible stroke, was in the hospital. She had been feeling bad throughout the day, had dropped several things and was taken to the Emergency Room, was hospitalized for a possible TIA versus a stroke. The patient is unsure which one it was. She has no deficits and has not required any physical therapy or anticoagulation therapy since this episode. ALLERGIES: TYLENOL and NSAIDs. MEDICATIONS: Trazodone 50 mg at bedtime, MS ER 15 mg b.i.d., morphine sulfate IR half a tab twice a day, prednisone 5 mg daily, oxybutynin 5 mg b.i.d., Zyrtec 10 mg daily, Estrace ____ mg daily, lisinopril 20 mg daily, glipizide 20 mg daily, Effexor 75 mg b.i.d., metformin 1000 mg b.i.d., Plavix 75 mg daily, Lantus 14 units at bedtime, amlodipine 10 mg daily, fenofibrate 160 mg daily, atorvastatin 20 mg at bedtime, aspirin 81 mg at bedtime and Orencia once a month. PQRS: 1. She has arthritic changes in her bilateral shoulders, hips and knees. She is also being treated for rheumatoid arthritis. 2. Height is 5 feet 3 inches, weight is 177, BMI is 31. 3. Vital signs 117/77, pulse is 88, respirations 16, oxygen sat is 100. 4. Pain score 6/10. 5. Denies dizziness, does not need help walking or standing, has fallen in the last 3 months. 6. The patient is on Plavix as well as hypertension medicines. 7. Opiate therapy is greater than 6 weeks; therefore, an opioid signed contract is on the chart. Risk assessment tool is low. Functional assessment is . 8. Recreational drug use, she denies. She is a former [place] [address] PAIN MANAGEMENT CONSULTATION Name: CHUCK ERVIN Room #: REG CL Paige#: [id number] Admission: 11/22/18 Attend Phys: Elina Lopez Discharge: Date of : 56 Report #: [id number] drink alcohol. According to the prescription monitoring system, the patient is filling appropriately for her medications. We did discuss 2 refills of medication from her surgeon from a recent foot surgery. There is a recent drug screen on the chart that is appropriate for her medications. PHYSICAL EXAMINATION: GENERAL: This is a well-developed, well-nourished, well-hydrated exogenous obese 58-year-old female who appears her stated age, placing her current pain score at 6/10. HEENT: Normocephalic, atraumatic. Pupils equal, round and reactive to light. Slight numbness in her left lower lip. EXTREMITIES: No clubbing, no cyanosis, no edema. MUSCULOSKELETAL: She has active and passive range of motion in her shoulders, but limited pain with this motion. Upper extremity strength judged to be 5/5 in all major muscle groups. Tenderness in her right knee today. Walks with a slightly antalgic gait. ASSESSMENT: 1. Bilateral shoulder pain. 2. Bilateral shoulder osteoarthritis. 3. Chronic intractable pain. 4. Right knee pain. 5. Rheumatoid arthritis. 6. Management of high-risk medications under terms of written opioid agreement. We reviewed the fact that opiate medications are being used to provide analgesia adequate to support activities of daily living, not attempting to achieve a specific pain score on the 0-10 Visual Analog Scale. The current opiate medications are providing sufficient analgesia to allow the patient to participate in activities of daily living. The patient is not exhibiting any aberrant behavior suggestive of drug diversion. The patient is not having any adverse reactions to medications. The patient is not suffering from daytime somnolence or mental acuity changes. The patient is managing opiate-induced constipation with appropriate gypk-cbo-wdigpkg agents and dietary considerations. The patient was counseled on concern for caution with operating a motor vehicle while using opiate medications. A physical exam was performed and the patient's functional status was evaluated. All patients with back pain were advised against the bed rest greater than 4 days and were advised to return to normal activities. Pain score assessment was noted and the treatment plan was reviewed with the patient. All current medications, both prescribed and OTC were reviewed and reconciled on the electronic medical record. Tobacco screening was accomplished and smoking cessation was advised when indicated. BMI was noted and diet/exercise [address] [place] [address] PAIN MANAGEMENT CONSULTATION Name: CHUCK ERVIN [id number] Admission: 11/22/18 Attend Phys: Elina MEGHAN John Discharge: Date of : 56 Report #: [id number] modification was recommended for all patients following outside normal parameters. I reviewed with the patient today their responsibilities to safeguard prescription medications, reviewed their responsibility to utilize medications only as prescribed by the physician. They are to seek and receive pain medications only from 1 physician group ( [facility]). They are to use 1 pharmacy and keep the clinic informed if they change pharmacies. Their responsibilities include making followup visits in a timely fashion and to avoid abrupt discontinuation of medication usage. Their responsibilities further include bringing their medications (bottles from the pharmacy with residual pills) to the visit for possible confirmation of pill counts and the patient understands it is their responsibility to submit to random drug screens to ensure both that the medications prescribed are present, and that no other controlled substances are present. All prescriptions provided today were generated electronically. PLAN: 1. We discussed treatment options with the patient today. We talked about trying to simplify her medication regimen to 1 tablet 3 times a day. After discussion with Dr. Juma Ervin and the patient, it was decided to change her medications to morphine sulfate ER 15 mg 3 times a day, #90. The patient will trial this for 1 month. She will have no breakthrough pain medicines, just a long acting to take 3 times a day. Hopefully, this will help with some of her arthritic pain that she experiences throughout the day as well as the evening. The patient voices the evening is the worst. 2. The patient will follow up in 1 month to see how this new regimen is working. 3. The patient is seen in collaboration with Dr. Juma Ervin who did see the patient as well today. The patient is still at 45 morphine mEq a day according to the CDC guidelines with this change in medications. <ELECTRONICALLY SIGNED> By: Elina Lopez 11/23/18 0834 [id number] [id number] Elina Lopez /gricel
== END ==
LOC: PAIN 06:51
DX: M19.012 Primary osteoarthritis, left shoulder (principal); M19.011 Primary osteoarthritis, right shoulder; G89.4 Chronic pain syndrome; M25.561 Pain in right knee; M06.9 Rheumatoid arthritis, unspecified; Z79.891 Long term (current) use of opiate analgesic; Z79.899 Other long term (current) drug therapy; Z88.8 Allergy status to other drugs, medicaments and biological substances

== ENCOUNTER → 2018-12-27 | Outpatient (CLI) | payer OTHER, BC ==
[~2018-12-27] VITALS: Ht 160 cm; Wt 81.1 kg
[2018-12-27 09:29] VITALS: BP 104/62
--- NOTE | 2018-12-27 09:49 | NUR ---
Pain Clinic Assessment: 1. History of Osteoarthritis: ALL JOINTS History of Rheumatoid Arthritis: ALL JOINTS 2. Height: 5 ft. 3 in. 160.0 cm. Weight: 178.8 lb. oz. 81.103 kg. Patient's BMI: 31.7 3. Vital Signs: BP: 104/62 Pulse: 84 Resp: 16 Temp: 02 Sat: 98 ECG Mon: 4. Pain Intensity: 5 5. Fall Risk: Dizziness: N Needs help standing or walking: N Fallen in the last 3 months: N Fall risk comments: 6. Patient on Blood Thinner: Clopidogrel Bisulf(Plavix 7. History of Hypertension: Y 8. Opioid Therapy greater than 6 weeks: Y Opiate Contract Signed: 9. Risk Assessment Tool Provided: OLiliLOW 10. Functional Assessment Tool: 11. Recreational Drug Use: Never Drug Type: Tobacco Use: Former Smoker Tobacco Type: Amount or Packs/day: How Many Years: Alcohol Use: No Frequency: Quant:
--- NOTE | 2018-12-27 15:13 | HPC ---
[facility] [address] [place] [address] PAIN MANAGEMENT CONSULTATION Name: AZIZATISONAL SANDRA Room #: REG [facility] MTiffanie.#: [id number] Admission: 12/27/18 Attend Phys: Elina Lopez Discharge: Date of : 56 Report #: [id number] THIS REPORT FOR: //name// CC: Elina Perez DATE OF SERVICE: 12/27/2018 CHIEF COMPLAINT: Bilateral shoulder pain and bilateral knee pain. HISTORY OF PRESENT ILLNESS: This is a very pleasant 58-year-old female who returns to the pain clinic today for followup from her medication changes at her last visit a month ago. Today, she is rating her pain score of 5/10. She feels that the change from morphine twice a day with occasional breakthrough pain to morphine 3 times a day has been quite beneficial. She feels that her pain is more evenly controlled. She does not have the peaks and valleys of pain that she did when she was not on continuous long-acting throughout the day. She continues to complain of bilateral shoulder pain and knee pain, worse pain being the right knee. It is an aching soreness, throbbing. It is worse when she walks and stands, but her medication and resting are very beneficial. She denies any problems with constipation and has not increased with her change of medication and she does not feel any overmedicated feeling or tiredness throughout the day. She would like refills of the morphine sulfate 3 times a day. ALLERGIES: TYLENOL AND NONSTEROIDAL ANTI-INFLAMMATORIES. MEDICATIONS: Trazodone 50 mg at bedtime, Orencia monthly, morphine sulfate 15 mg t.i.d., prednisone 5 mg daily, oxybutynin 10 mg b.i.d., Zyrtec p.r.n., Estrace 5 mg daily, lisinopril 20 mg daily, glipizide 20 mg daily, Effexor XR 2 in the morning and 1 at night, metformin 1000 mg b.i.d., Plavix 75 mg daily, Lantus at bedtime, amlodipine 10 mg daily, fenofibrate 160 mg daily. PQRS: 1. She does have arthritic changes in her bilateral hips and knees and also being treated for rheumatoid arthritis. 2. Height is 5 feet 3 inches, weight is 178, BMI is 31. 3. Vital signs 104/62, pulse is 84, respirations 16, oxygen sat is 98. 4. Pain score is 5/10. 5. Denies dizziness, does not need help walking or standing, has not fallen in the last 3 months. 6. The patient is on Plavix as well as hypertension medicines. 7. Opioid therapy is greater than 6 weeks; therefore, an opioid signed contract is on the chart. [address] [address] PAIN MANAGEMENT CONSULTATION Name: CHUCK ERVIN Room #: REG CLI [facility].#: [id number] Admission: 12/27/18 Attend Phys: Elina Lopez Discharge: Date of : 56 Report #: [id number] 8. Risk assessment tool is low. Functional assessment is . 9. Recreational drug use, she denies. She is a former smoker and does not drink alcohol. According to the prescription monitoring system, the patient is filling appropriately for her medications. She is due for those today. There is a recent drug screen on the chart that is appropriate as well. Her current morphine mEq is 45 per day according to the CDC guidelines. She does safeguard her meds at all times. PHYSICAL EXAMINATION: GENERAL: This is a well-developed, well-nourished 58-year-old female who appears her stated age, placing her current pain score at 5/10 today. She is alert and oriented and a good historian. HEENT: Normocephalic, atraumatic. Extraocular eye muscles are intact. Mucous membranes are moist. EXTREMITIES: No clubbing, no cyanosis, no edema. MUSCULOSKELETAL: Upper extremity strength judged to be 5/5 in all major muscle groups with good sensation. She has tenderness in bilateral knees, greater in the right today. She walks with a slightly antalgic gait. Active and passive range of motion in her shoulders does increase her pain. ASSESSMENT: 1. Bilateral shoulder pain. 2. Bilateral shoulder osteoarthritis. 3. Bilateral knee pain, right greater than left. 4. Chronic intractable pain. 5. Rheumatoid arthritis. 6. Management of medications under terms of written opioid agreement. We reviewed the fact that opiate medications are being used to provide analgesia adequate to support activities of daily living, not attempting to achieve a specific pain score on the 0-10 Visual Analog Scale. The current opiate medications are providing sufficient analgesia to allow the patient to participate in activities of daily living. The patient is not exhibiting any aberrant behavior suggestive of drug diversion. The patient is not having any adverse reactions to medications. The patient is not suffering from daytime somnolence or mental acuity changes. The patient is managing opiate-induced constipation with appropriate bzrt-tjl-xwjwqti agents and dietary considerations. The patient was counseled on concern for caution with operating a motor vehicle while using opiate medications. PLAN: 1. We discussed treatment options with the patient today. The patient has found our change in medications very beneficial. Currently taking morphine sulfate ER 15 mg 3 times a day with no breakthrough pain pills. She feels that [facility] [address] [place] [address] PAIN MANAGEMENT CONSULTATION Name: CHUCK ERVIN Room #: REG JANINE Gibson#: [id number] Admission: 12/27/18 Attend Phys: Elina Lopez Discharge: Date of : 56 Report #: [id number] her pain is more evenly controlled throughout the day. We will refill this medication for today, 4-week and 8-week release. This medication was sent to her pharmacy electronically. 2. The patient denies any problems with constipation or daytime sleepiness from this change of medications. 3. The patient will follow up in 3 months for medication refills. The patient was seen in collaboration with Dr Juma Ervin today. <ELECTRONICALLY SIGNED> By: Elina Lopez 12/27/18 1513 [id number] [id number] Elina Lopez /gricel
== END ==
LOC: PAIN 12-20 06:44
DX: M19.011 Primary osteoarthritis, right shoulder (principal); M19.012 Primary osteoarthritis, left shoulder; M17.0 Bilateral primary osteoarthritis of knee; Z79.891 Long term (current) use of opiate analgesic

== ENCOUNTER → 2019-05-03 | Outpatient (CLI) | payer OTHER, BC ==
[~2019-05-03] VITALS: Ht 160 cm; Wt 73.4 kg
[~2019-05-03] MED LIST changes: +VOLTAREN GEL 1100 G1 TOP
--- NOTE | ~2019-05-03 | HPC ---
[place] [address] PAIN MANAGEMENT CONSULTATION Name: CHUCK ERVIN [id number] Admission: 05/03/19 Attend Phys: Juma Ervin DO Discharge: Date of : 56 Report #: [id number] THIS REPORT FOR: cc: SABA JO MD, CHADWICK MD Johnson, James E. DO ~ CC: SABA Ervin DATE OF SERVICE: 05/03/2019 REFERRING PHYSICIAN: Dr. Portia Perez. CHIEF COMPLAINT: Bilateral shoulder pain, bilateral knee pain, generalized joint pain. HISTORY OF PRESENT ILLNESS: As you know, the patient is a very pleasant 59-year-old female who has returned today in followup visit, requesting refill on medications. At our last visit, the patient had adjustments made in her medication management. We placed the patient on MS Contin 15 mg t.i.d. to gain better efficacy and reduce her reliance on immediate release medication and hopefully improve overall her constipation issues she was complaining of. She returns today in followup visit stating pain no greater than 6/10, which is good for her. She indicates that the constipation has improved significantly with adjustments in therapy. She is very pleased with response to the treatment and wishes to continue the MS Contin 15 mg t.i.d. She states she remains busy at home, doing activities at home and working doing her daily chores. She states overall the medications do allow her to go about all activities of daily living without significant pain interference. She returns today in followup visit requesting refill on medications at current dosing. ALLERGIES: TYLENOL AND NONSTEROIDAL ANTI-INFLAMMATORIES. CURRENT MEDICATIONS: MS Contin 15 mg 3 times a day, trazodone 50 mg p.o. at bedtime, Orencia 50 mg subcutaneous monthly, trazodone 50 mg p.o. at bedtime, prednisone 1 mg 5 tabs per day, oxybutynin 5 mg twice a day, cetirizine 10 mg per day, Estrace 2 mg 2-1/2 tabs once a day, lisinopril 10 mg once a day, glipizide 10 mg 2 tabs once a day, venlafaxine 75 mg dose 2 tabs b.i.d., metformin 1000 mg once a day, Plavix 75 mg per day, insulin sliding scale, amlodipine 10 mg once a day, fenofibrate 160 mg once a day, atorvastatin 20 mg per day. SOCIAL HISTORY: The patient denies tobacco, alcohol, IV or illicit drug use. She is unaccompanied today. [address] [address] PAIN MANAGEMENT CONSULTATION Name: CHUCK ERVIN Room #: REG CLReggie Gibson#: [id number] Admission: 05/03/19 Attend Phys: Juma Ervin DO Discharge: Date of : 56 Report #: [id number] IMAGING: No new imaging available. PQRS: The patient has known arthritic changes of the bilateral shoulders, bilateral hips, bilateral knees and lumbar spine. She does have a diagnosis of rheumatoid arthritis as they are being treated actively. She is placing pain score 6/10. She is not a fall risk, has not had a fall in last 3 months. She is on Plavix from a blood thinner standpoint. She is treated for hypertension. She is on chronic opioids, but does have a low opioid addiction potential based on our assessment tool. Pain impact score 24/70 indicating moderate interference of daily activities secondary to pain. PHYSICAL EXAMINATION: VITAL SIGNS: Blood pressure 139/85, pulse 91, respiratory rate 14 and unlabored. The patient is 98% on room air. Height 5 feet 3 inches tall, weight 161.8 pounds, BMI calculated 28.7. GENERAL: Well-developed, well-nourished, well-hydrated 59-year-old female appearing stated age, placing current pain score at 6/10. HEENT: Normocephalic, atraumatic. Pupils are equal, round, reactive to light. Extraocular muscles are intact. EXTREMITIES: Showed no clubbing, no cyanosis, and no edema. MUSCULOSKELETAL: Lower extremity strength appears symmetrical 5/5, intact to light touch from L1 through S2 dermatomes. Seated straight leg raising negative. Supine straight leg raising negative. Active and passive range of motion of bilateral shoulders cause pain with limitation of motion. This appears to be mild in its presentation. Upper extremity strength is equal and symmetrical. The patient has active and passive range of motion pain generated with bilateral knees. There is no laxity in the ligamentous structures and negative drawer tests bilaterally. She has an antalgic gait due to knee pain. ASSESSMENT: 1. Rheumatoid arthritis. 2. Bilateral shoulder pain. 3. Bilateral shoulder osteoarthritis. 4. Right knee pain. 5. Right knee and left knee osteoarthritis. 6. Chronic intractable pain. PLAN: 1. The patient has returned today in followup visit indicating that the adjustments made at the last visit changing to MS Contin 15 mg 3 times a day has been quite beneficial despite the elevated pain level of 6/10 today. The patient indicates that her constipation has nearly resolved. She is back to normal bowel movements now that she has discontinued the use of immediate release formulation medications. She is getting better baseline pain control despite the elevated pain report today. Overall, the patient states that she has been able to return to a significant increase in her daily activities with [address] [place] [address] PAIN MANAGEMENT CONSULTATION Name: CHUCK ERVIN [id number] Admission: 05/03/19 Attend Phys: Juma Ervin DO Discharge: Date of : 56 Report #: [id number] use of medications and wishes to continue the therapy. 2. We reviewed the fact that opiate medications are being used to provide analgesia adequate to support activities of daily living, not attempting to achieve a specific pain score on the 0-10 Visual Analog Scale. The current opiate medications are providing sufficient analgesia to allow the patient to participate in activities of daily living. The patient is not exhibiting any aberrant behavior suggestive of drug diversion. The patient is not having any adverse reactions to medications. The patient is not suffering from daytime somnolence or mental acuity changes. The patient is managing opiate-induced constipation with appropriate eyca-syc-vcaepdb agents and dietary considerations. The patient was counseled on concern for caution with operating a motor vehicle while using opiate medications. A physical exam was performed and the patient's functional status was evaluated. All patients with back pain were advised against the bed rest greater than 4 days and were advised to return to normal activities. Pain score assessment was noted and the treatment plan was reviewed with the patient. All current medications, both prescribed and OTC were reviewed and reconciled on the electronic medical record. Tobacco screening was accomplished and smoking cessation was advised when indicated. BMI was noted and diet/exercise modification was recommended for all patients following outside normal parameters. I reviewed with the patient today their responsibilities to safeguard prescription medications, reviewed their responsibility to utilize medications only as prescribed by the physician. They are to seek and receive pain medications only from 1 physician group ( [facility]). They are to use 1 pharmacy and keep the clinic informed if they change pharmacies. Their responsibilities include making followup visits in a timely fashion and to avoid abrupt discontinuation of medication usage. Their responsibilities further include bringing their medications (bottles from the pharmacy with residual pills) to the visit for possible confirmation of pill counts and the patient understands it is their responsibility to submit to random drug screens to ensure both that the medications prescribed are present, and that no other controlled substances are present. All prescriptions provided today were generated electronically. 3. The patient was provided prescription of MS Contin 15 mg dose 1 tab p.o. t.i.d. I have given the patient #90 tablets, releasing today and 4 weeks from today, 2 months' worth of medication. The patient is taking approximately 45 morphine equivalents per day, well below the CDCs recommended no greater than 90 morphine equivalents. 4. The patient is complaining of bilateral knee pain. I have advised the patient to trial Voltaren gel as a possible treatment. She does report ALLERGIES TO NONSTEROIDAL ANTI-INFLAMMATORIES which appear to be more of a reported side effect of some itching. I did indicate that we would trial a one-time dose of Voltaren gel to be applied topically to the bilateral knees. [address] [address] PAIN MANAGEMENT CONSULTATION Name: CHUCK ERVIN Room #: REG CLReggie Gibson#: [id number] Admission: 05/03/19 Attend Phys: Juma Ervin DO Discharge: Date of : 56 Report #: [id number] This has 1% diclofenac active ingredient. She will watch for any side effects with its use. She will be applying topically up to 4 times a day to affected areas. 5. I would recommend the patient look into Orthopedic Surgery in regards to her bilateral knee pain. She has been advised in the past that she would need total knee arthroplasty sooner rather than later. This was years ago. I do feel further evaluation from Orthopedics would be appropriate. The patient was given the names of orthopedic surgeons who perform bilateral total knee operations as I do feel the bilateral knee operation would be most appropriate given her immunocompromise secondary to treatment for rheumatoid arthritis. We will defer to the Orthopedics to determine if this is a possible alternative option. 6. We will see the patient back in followup visit in 2 months for medication management. By: [id number] Juma Ervin DO /gricel
[2019-05-03 13:55] VITALS: BP 139/85
--- NOTE | 2019-05-03 14:25 | NUR ---
Pain Clinic Assessment: 1. History of Osteoarthritis: ALL JOINTS History of Rheumatoid Arthritis: ALL JOINTS 2. Height: 5 ft. 3 in. 160.0 cm. Weight: 161.8 lb. oz. 73.392 kg. Patient's BMI: 28.7 3. Vital Signs: BP: 139/85 Pulse: 91 Resp: 14 Temp: 02 Sat: 98 ECG Mon: 4. Pain Intensity: 6 5. Fall Risk: Dizziness: N Needs help standing or walking: N Fallen in the last 3 months: N Fall risk comments: 6. Patient on Blood Thinner: Clopidogrel Bisulf(Plavix 7. History of Hypertension: Y 8. Opioid Therapy greater than 6 weeks: Y Opiate Contract Signed: 9. Risk Assessment Tool Provided: O-LOW 10. Functional Assessment Tool: 11. Recreational Drug Use: Never Drug Type: Tobacco Use: Former Smoker Tobacco Type: Amount or Packs/day: How Many Years: Alcohol Use: No Frequency: Quant:
== END ==
LOC: PAIN 06:56
DX: M19.012 Primary osteoarthritis, left shoulder (principal); M19.011 Primary osteoarthritis, right shoulder; M06.9 Rheumatoid arthritis, unspecified; G89.29 Other chronic pain; M17.0 Bilateral primary osteoarthritis of knee; Z88.8 Allergy status to other drugs, medicaments and biological substances; Z79.899 Other long term (current) drug therapy

== ENCOUNTER → 2019-08-15 | Outpatient (CLI) | payer OTHER, BC ==
[~2019-08-15] VITALS: Ht 162.6 cm; Wt 76.2 kg
[2019-08-15 10:47] VITALS: BP 123/68
--- NOTE | 2019-08-15 10:53 | NUR ---
Pain Clinic Assessment: 1. History of Osteoarthritis: ALL JOINTS History of Rheumatoid Arthritis: ALL JOINTS 2. Height: 5 ft. 4 in. 162.6 cm. Weight: 168.0 lb. oz. 76.204 kg. Patient's BMI: 28.8 3. Vital Signs: BP: 123/68 Pulse: 95 Resp: 16 Temp: 02 Sat: 97 ECG Mon: 4. Pain Intensity: 8 5. Fall Risk: Dizziness: N Needs help standing or walking: N Fallen in the last 3 months: N Fall risk comments: 6. Patient on Blood Thinner: Clopidogrel Bisulf(Plavix 7. History of Hypertension: Y 8. Opioid Therapy greater than 6 weeks: Y Opiate Contract Signed: 9. Risk Assessment Tool Provided: O-LOW 10. Functional Assessment Tool: 11. Recreational Drug Use: Never Drug Type: Tobacco Use: Former Smoker Tobacco Type: Amount or Packs/day: How Many Years: Alcohol Use: No Frequency: Quant:
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
== END ==
LOC: PAIN 06:50
PROVIDERS: ATTEND Clinical Nurse Specialist Adult Health
DX: M25.511 Pain in right shoulder (principal); M25.512 Pain in left shoulder; M17.0 Bilateral primary osteoarthritis of knee; M06.9 Rheumatoid arthritis, unspecified; G89.29 Other chronic pain; F11.20 Opioid dependence, uncomplicated; M79.10 Myalgia, unspecified site; Z88.8 Allergy status to other drugs, medicaments and biological substances; Z79.899 Other long term (current) drug therapy

== ENCOUNTER → 2019-11-07 | Outpatient (CLI) | payer OTHER, BC ==
[~2019-11-07] VITALS: Ht 162.6 cm; Wt 83.7 kg
[2019-11-07 09:34] VITALS: BP 129/69
--- NOTE | 2019-11-07 09:56 | NUR ---
Pain Clinic Assessment: 1. History of Osteoarthritis: ALL JOINTS History of Rheumatoid Arthritis: ALL JOINTS 2. Height: 5 ft. 4 in. 162.6 cm. Weight: 184.6 lb. oz. 83.734 kg. Patient's BMI: 31.7 3. Vital Signs: BP: 129/69 Pulse: 85 Resp: 20 Temp: 02 Sat: 100 ECG Mon: 4. Pain Intensity: 7 5. Fall Risk: Dizziness: N Needs help standing or walking: N Fallen in the last 3 months: N Fall risk comments: 6. Patient on Blood Thinner: Clopidogrel Bisulf(Plavix 7. History of Hypertension: Y 8. Opioid Therapy greater than 6 weeks: Y Opiate Contract Signed: 9. Risk Assessment Tool Provided: 2-LOW 10. Functional Assessment Tool: 11. Recreational Drug Use: Never Drug Type: Tobacco Use: Former Smoker Tobacco Type: Amount or Packs/day: How Many Years: Alcohol Use: No Frequency: Quant:
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
== END ==
LOC: PAIN 06:42
PROVIDERS: ATTEND Clinical Nurse Specialist Adult Health
DX: M19.011 Primary osteoarthritis, right shoulder (principal); M19.012 Primary osteoarthritis, left shoulder; M17.0 Bilateral primary osteoarthritis of knee; M06.9 Rheumatoid arthritis, unspecified; G89.29 Other chronic pain; F11.20 Opioid dependence, uncomplicated; Z88.8 Allergy status to other drugs, medicaments and biological substances; Z79.899 Other long term (current) drug therapy

== ENCOUNTER → 2020-02-06 | Outpatient (CLI) | payer OTHER, BC ==
[~2020-02-06] VITALS: Ht 160 cm; Wt 85.3 kg
[2020-02-06 09:03] VITALS: BP 137/72
--- NOTE | 2020-02-06 09:12 | NUR ---
Pain Clinic Assessment: 1. History of Osteoarthritis: ALL JOINTS History of Rheumatoid Arthritis: ALL JOINTS 2. Height: 5 ft. 3 in. 160.0 cm. Weight: 188.0 lb. oz. 85.276 kg. Patient's BMI: 33.3 3. Vital Signs: BP: 137/72 Pulse: 84 Resp: 16 Temp: 02 Sat: 95 ECG Mon: 4. Pain Intensity: 7 5. Fall Risk: Dizziness: N Needs help standing or walking: N Fallen in the last 3 months: N Fall risk comments: 6. Patient on Blood Thinner: Clopidogrel Bisulf(Plavix 7. History of Hypertension: Y 8. Opioid Therapy greater than 6 weeks: Y Opiate Contract Signed: 9. Risk Assessment Tool Provided: 2-LOW 10. Functional Assessment Tool: 11. Recreational Drug Use: Never Drug Type: Tobacco Use: Former Smoker Tobacco Type: Amount or Packs/day: How Many Years: Alcohol Use: No Frequency: Quant:
--- NOTE | 2020-02-06 14:19 | HPC ---
[facility] [place] [address] PAIN MANAGEMENT CONSULTATION Name: CHUCK ERVIN [id number] Admission: 02/06/20 Attend Phys: Elina Lopez Discharge: Date of : 56 Report #: [id number] THIS REPORT FOR: cc: SABA JO MD, CHADWICK MD Hocker,Elina CHRISTIANSON ~ DATE OF SERVICE: 02/06/2020 CC: Dr Juma Ervin DO CHIEF COMPLAINT: Right shoulder pain and left knee pain. HISTORY OF PRESENT ILLNESS: This is a 59-year-old female who returns to the pain clinic today for refill of her medications that she uses to treat her ongoing shoulder and knee pain. She also complains of pain in her wrist and hands related to her rheumatoid arthritis. She gets infusions every 2 months for her arthritis and takes prednisone on a daily basis. The patient today is reporting a pain score of 7/10 and complains that her pain is worse with walking and getting up in the morning. She does better after she is more active throughout the day and the pain medicines are very beneficial as well as heat. The patient reports she has been taking one of her morphine daily due to not having any further scripts and made an appointment past her due date. Today, she is requesting refills and denies any constipation. ALLERGIES: TYLENOL AND NONSTEROIDAL ANTI-INFLAMMATORIES. CURRENT LIST OF MEDICATIONS: Morphine sulfate 15 mg b.i.d., diclofenac gel, trazodone, prednisone 10 mg, oxybutynin, Zyrtec, Zestril, Effexor, Plavix, Lantus, amlodipine, fenofibrate, atorvastatin and Simponi Aria infusion. PQRS: 1. She has osteoarthritic changes as well as rheumatoid arthritis that she is being treated for. 2. Height is 5 feet 3 inches, weight is 188, BMI is 33. 3. Vital signs; BP 137/72, pulse is 84, respirations 16, oxygen sat is 95%. 4. Pain score is 7/10. 5. Denies dizziness, does not need help walking or standing, has not fallen in the last 3 months. 6. The patient is on Plavix as well as medicine for hypertension. 7. Opioid therapy is greater than 6 weeks. There is an opioid signed contract on the chart. Her risk assessment is low. Functional assessment is . 8. Recreational drug use, she denies. She is a former smoker and does not drink alcohol. According to the prescription monitoring system, she is due to fill her medications. We did check a random drug screen on her at her last visit that [address] [address] PAIN MANAGEMENT CONSULTATION Name: CHUCK ERVIN Room #: REG JANINE Gibson#: [id number] Admission: 02/06/20 Attend Phys: Elina Lopez Discharge: Date of : 56 Report #: [id number] was negative for her morphine. We will recheck a drug screen today explaining to her that we will allow her one month of medicine until we have the results. If the results is positive for her medicine, then we will electronically send her second month. If it is negative, we will have her return to the clinic to discuss options for her. PHYSICAL EXAMINATION: GENERAL: This is alert and orientated, well-developed, well-nourished, 59-year-old female, who appears her stated age, placing her current pain score at 7/10 today. HEENT: Normocephalic, atraumatic. Extraocular eye muscles are intact. She is wearing a mask. EXTREMITIES: No clubbing, no cyanosis, no edema. MUSCULOSKELETAL: She has tenderness in her knees bilaterally, greater on the left than the right. Passive and active range of motion of her right shoulder does increase pain as well. She has rheumatoid nodules on her hands bilaterally. Her upper and lower extremity strength is symmetrical at 5/5. ASSESSMENT: 1. Rheumatoid arthritis. 2. Bilateral shoulder pain with osteoarthritis. 3. Bilateral knee pain. 4. Chronic intractable pain. 5. Opioid medications under written opioid agreement. We reviewed the fact that opiate medications are being used to provide analgesia adequate to support activities of daily living, not attempting to achieve a specific pain score on the 0-10 Visual Analog Scale. The current opiate medications are providing sufficient analgesia to allow the patient to participate in activities of daily living. The patient is not exhibiting any aberrant behavior suggestive of drug diversion. The patient is not having any adverse reactions to medications. The patient is not suffering from daytime somnolence or mental acuity changes. The patient is managing opiate-induced constipation with appropriate wsnm-qho-rcepreq agents and dietary considerations. The patient was counseled on concern for caution with operating a motor vehicle while using opiate medications. A physical exam was performed and the patient's functional status was evaluated. All patients with back pain were advised against the bed rest greater than 4 days and were advised to return to normal activities. Pain score assessment was noted and the treatment plan was reviewed with the patient. All current medications, both prescribed and OTC were reviewed and reconciled on the electronic medical record. Tobacco screening was accomplished and smoking cessation was advised when indicated. BMI was noted and diet/exercise modification was recommended for all patients following outside normal parameters. [address] [address] PAIN MANAGEMENT CONSULTATION Name: CHUCK ERVIN Room #: REG [facility]#: [id number] Admission: 02/06/20 Attend Phys: Elina MEGHAN John Discharge: Date of : 56 Report #: [id number] I reviewed with the patient today their responsibilities to safeguard prescription medications, reviewed their responsibility to utilize medications only as prescribed by the physician. They are to seek and receive pain medications only from 1 physician group ( [facility]). They are to use 1 pharmacy and keep the clinic informed if they change pharmacies. Their responsibilities include making followup visits in a timely fashion and to avoid abrupt discontinuation of medication usage. Their responsibilities further include bringing their medications (bottles from the pharmacy with residual pills) to the visit for possible confirmation of pill counts and the patient understands it is their responsibility to submit to random drug screens to ensure both that the medications prescribed are present, and that no other controlled substances are present. All prescriptions provided today were generated electronically. PLAN: 1. We discussed treatment options with the patient today. We did discuss her urine drug screen that did show negative for morphine. The patient reports that she has taken her pain medicine within the last 12 hours. We will recheck this today. If it is negative, we will discuss options of weaning her off her medications. If it is positive, we will send one further script electronically and have her return every 2 months. The patient verbalizes understanding of this. 2. We did discuss the COVID vaccine. The patient does have significant rheumatoid arthritis and is immunosuppressed from her prednisone therapy. I encouraged her to discuss this with her primary care physician. The patient is wanting to have the COVID vaccine when it is available to her. We discussed getting the vaccine at [facility] in [facility], but to make sure it does not interfere with her rheumatoid infusion. 3. The patient will follow up in a month by phone. The patient is seen today in collaboration with Dr. Juma Ervin. <ELECTRONICALLY SIGNED> By: Elina Lopez 02/06/20 1419 [id number] Elina Lopez /nt
== END ==
LOC: PAIN 06:47
PROVIDERS: ATTEND Clinical Nurse Specialist Adult Health
DX: M19.011 Primary osteoarthritis, right shoulder (principal); M19.012 Primary osteoarthritis, left shoulder; M25.561 Pain in right knee; M25.562 Pain in left knee; G89.29 Other chronic pain; F11.20 Opioid dependence, uncomplicated; Z88.8 Allergy status to other drugs, medicaments and biological substances; Z79.899 Other long term (current) drug therapy

== ENCOUNTER → 2020-03-06 | Outpatient (CLI) | payer OTHER, BC ==
[~2020-03-06] VITALS: Ht 160 cm; Wt 82.0 kg
[~2020-03-06] MED LIST changes: +JARDIANCE25 MG PO; +SIMPONI AR50 MG/4 ML IV
[2020-03-06 09:39] VITALS: BP 105/70
--- NOTE | 2020-03-06 10:07 | NUR ---
Pain Clinic Assessment: 1. History of Osteoarthritis: ALL JOINTS History of Rheumatoid Arthritis: ALL JOINTS 2. Height: 5 ft. 3 in. 160.0 cm. Weight: 180.8 lb. oz. 82.010 kg. Patient's BMI: 32.0 3. Vital Signs: BP: 105/70 Pulse: 66 Resp: 18 Temp: 02 Sat: 100 ECG Mon: 4. Pain Intensity: 5 5. Fall Risk: Dizziness: N Needs help standing or walking: N Fallen in the last 3 months: N Fall risk comments: 6. Patient on Blood Thinner: Clopidogrel Bisulf(Plavix 7. History of Hypertension: Y 8. Opioid Therapy greater than 6 weeks: Y Opiate Contract Signed: 9. Risk Assessment Tool Provided: 2-LOW 10. Functional Assessment Tool: 11. Recreational Drug Use: Never Drug Type: Tobacco Use: Former Smoker Tobacco Type: Amount or Packs/day: How Many Years: Alcohol Use: No Frequency: Quant:
--- NOTE | 2020-03-06 16:01 | HPC ---
[facility] [address] [address] PAIN MANAGEMENT CONSULTATION Name: CHUCK ERVIN Room #: REG [facility]..#: [id number] Admission: 03/06/20 Attend Phys: Elina Lopez Discharge: Date of : 56 Report #: [id number] THIS REPORT FOR: cc: SABA JO MD, CHADWICK MD Hocker, Amanda CNS ~ DATE OF SERVICE: 03/06/2020 CHIEF COMPLAINT: Right shoulder and left knee pain, rheumatoid arthritic painful joints. HISTORY OF PRESENT ILLNESS: This is a 60-year-old female who returns to the pain clinic today to refill her medications. Today, she is reporting that she is getting ready to fill her last prescription at the pharmacy, but was unsure when she needed to come and see us for refills of her medication. She does report that her morphine is effectively control her pain, rating at a 5/5 today. She reports that the weather changes have significantly cause an increase in all of her joints due to her arthritic changes. She says normally when the weather is not fluctuating as much as it has recently, she feels that she has better pain control. She continues to use Voltaren gel as well as infusions for her arthritic joints. She denies any opioid constipation or daytime somnolence as a result of her medications. The patient is wondering about the COVID vaccine and has several questions regarding that today, she would like to have this due to her decrease in the immune system due to her rheumatology medications. ALLERGIES: NONSTEROIDAL ANTI-INFLAMMATORIES AND TYLENOL. CURRENT LIST OF MEDICATIONS: Richy Marino, Kati, MS Contin 15 mg b.i.d., diclofenac gel, trazodone, prednisone, oxybutynin, Zyrtec, Zestril, Effexor, Plavix, Lantus, amlodipine, fenofibrate, and atorvastatin. PQRS: 1. She has arthritic changes in all of her joints as well as being treated for rheumatoid arthritis. 2. Height is 5 feet 3 inches, weight is 180, BMI is 32. 3. Vital signs 105/70, pulse is 66, respirations 18, oxygen sat is 100. 4. Pain score is 5/10. 5. Denies dizziness, does not need help walking or standing, has not fallen in the last 3 months. The patient is on Plavix as well as medications for hypertension. 6. Opioid therapy is greater than 6 weeks; therefore, an opioid signed contract is on the chart. Risk assessment is low. Functional assessment is 70. 7. Recreational drug use, she denies. She is a former smoker and does not drink alcohol. [address] [address] PAIN MANAGEMENT CONSULTATION Name: AZIZATISONAL SANDRA Room #: REG CLReggie Gibson#: [id number] Admission: 03/06/20 Attend Phys: Elina Lopez Discharge: Date of : 56 Report #: [id number] According to the prescription monitoring, she is due to fill her medications today. Her morphine mEq is 30 MME according to the CDC guidelines and there is a recent drug screen in the chart. PHYSICAL EXAMINATION: GENERAL: This is alert and orientated 60-year-old female who appears her stated age. She is well-developed, well-nourished, rating her pain score today at 5/10. HEENT: Normocephalic, atraumatic. Extraocular eye muscles are intact. She is wearing a mask and glasses. EXTREMITIES: No clubbing, no cyanosis, no edema. MUSCULOSKELETAL: Lower extremity strength appears symmetrical at 5/5 with intact to light touch from L1 to S2. Seated straight leg raising is negative. Active and passive in range of motion bilaterally shoulders do increase pain with limitation. Upper extremity strength is equal and symmetrical. The patient is active and passive range of motion generated in her bilateral knees with increase in pain. She has an antalgic gait due to her knee pain. ASSESSMENT: 1. Rheumatoid arthritis. 2. Bilateral shoulder pain. 3. Bilateral shoulder osteoarthritis. 4. Bilateral knee osteoarthritis. 5. Chronic intractable pain. 6. Opioid medication under written agreement. We reviewed the fact that opiate medications are being used to provide analgesia adequate to support activities of daily living, not attempting to achieve a specific pain score on the 0-10 Visual Analog Scale. The current opiate medications are providing sufficient analgesia to allow the patient to participate in activities of daily living. The patient is not exhibiting any aberrant behavior suggestive of drug diversion. The patient is not having any adverse reactions to medications. The patient is not suffering from daytime somnolence or mental acuity changes. The patient is managing opiate-induced constipation with appropriate svpk-frx-blpfbpt agents and dietary considerations. The patient was counseled on concern for caution with operating a motor vehicle while using opiate medications. PLAN: 1. We discussed treatment options with the patient today. I explained to the patient that when she fills her last prescription, she needs to call our office for an appointment within the month. Today, she is here on the same day she is due to fill her medications. We did review this and gave the patient very specific dates when to fill her next prescriptions. Today, we will have Dr. Juma Ervin send electronically scripts to fill 04/03/2020 as well as [address] [address] PAIN MANAGEMENT CONSULTATION Name: CHUCK ERVIN Room #: REG Reggie Gibson#: [id number] Admission: 03/06/20 Attend Phys: Elina Lopez Discharge: Date of : 56 Report #: [id number] 05/01/2020, therefore, the patient does not need to come to an appointment until 05/28/2020. The patient verbalizes understanding. 2. She does not need refills of her Voltaren gel today. 3. The patient would like to obtain the COVID vaccination. She has put her name on the list in her county. I encouraged her to check her spam to see if they did send her a response, also to be very vigilant in checking different sites on a weekly basis. Hopefully with more vaccine available, she will be able to obtain her inoculation. I have also encouraged her to call her recreational resort manager and maybe he has a way for her to get her vaccine. 4. The patient is seen and collaborated care today with Dr. Juma Ervin. <ELECTRONICALLY SIGNED> By: Elina Lopez 03/06/20 1601 [id number] 1051 Elina Lopez /nt
== END ==
LOC: PAIN 06:50
PROVIDERS: ATTEND Clinical Nurse Specialist Adult Health
DX: M17.0 Bilateral primary osteoarthritis of knee (principal); M06.9 Rheumatoid arthritis, unspecified; M19.012 Primary osteoarthritis, left shoulder; M19.011 Primary osteoarthritis, right shoulder; G89.29 Other chronic pain; F11.20 Opioid dependence, uncomplicated; Z88.8 Allergy status to other drugs, medicaments and biological substances; Z79.899 Other long term (current) drug therapy

== ENCOUNTER → 2020-05-29 | Outpatient (CLI) | payer OTHER, BC ==
[~2020-05-29] VITALS: Ht 160 cm; Wt 85.5 kg
[~2020-05-29] MED LIST changes: +CIMZIA400 MG/2 M SUBQ; +DICLOFENAC POTA50 MG PO; +MORPHINE SULFAT15 M4 PO; +VOLTAREN 50MG T50 MG PO
[2020-05-29 10:05] VITALS: BP 101/60
--- NOTE | 2020-05-29 10:12 | NUR ---
Pain Clinic Assessment: 1. History of Osteoarthritis: ALL JOINTS History of Rheumatoid Arthritis: ALL JOINTS 2. Height: 5 ft. 3 in. 160.0 cm. Weight: 188.4 lb. oz. 85.458 kg. Patient's BMI: 33.4 3. Vital Signs: BP: 101/60 Pulse: 77 Resp: 18 Temp: 02 Sat: 100 ECG Mon: 4. Pain Intensity: 7 5. Fall Risk: Dizziness: N Needs help standing or walking: N Fallen in the last 3 months: N Fall risk comments: 6. Patient on Blood Thinner: BRILINTA 7. History of Hypertension: Y 8. Opioid Therapy greater than 6 weeks: Y Opiate Contract Signed: 11/08/19 9. Risk Assessment Tool Provided: 2-LOW 10. Functional Assessment Tool: 11. Recreational Drug Use: Never Drug Type: Tobacco Use: Former Smoker Tobacco Type: Amount or Packs/day: How Many Years: Alcohol Use: No Frequency: Quant:
== END ==
LOC: PAIN 09:18
PROVIDERS: ATTEND Anesthesiology Pain Medicine
DX: Z76.0 Encounter for issue of repeat prescription (principal); M25.511 Pain in right shoulder; M25.561 Pain in right knee; M25.562 Pain in left knee; M79.641 Pain in right hand; M79.642 Pain in left hand; F32.9 Major depressive disorder, single episode, unspecified; Z87.891 Personal history of nicotine dependence; Z79.899 Other long term (current) drug therapy

== ENCOUNTER → 2020-10-15 | Outpatient (CLI) | payer OTHER, BC ==
[~2020-10-15] VITALS: Ht 160 cm; Wt 82.5 kg
[~2020-10-15] MED LIST changes: +METFORMIN PO
[2020-10-15 09:37] VITALS: BP 112/66
--- NOTE | 2020-10-15 09:58 | NUR ---
Pain Clinic Assessment: 1. History of Osteoarthritis: ALL JOINTS History of Rheumatoid Arthritis: ALL JOINTS 2. Height: 5 ft. 3 in. 160.0 cm. Weight: 181.8 lb. oz. 82.464 kg. Patient's BMI: 32.2 3. Vital Signs: BP: 112/66 Pulse: 72 Resp: 16 Temp: 02 Sat: 100 ECG Mon: 4. Pain Intensity: 7 TODAY 5. Fall Risk: Dizziness: N Needs help standing or walking: N Fallen in the last 3 months: N Fall risk comments: 6. Patient on Blood Thinner: BRILINTA 7. History of Hypertension: Y 8. Opioid Therapy greater than 6 weeks: Y Opiate Contract Signed: 11/08/19 9. Risk Assessment Tool Provided: 2-LOW 10. Functional Assessment Tool: 11. Recreational Drug Use: Never Drug Type: Tobacco Use: Former Smoker Tobacco Type: Amount or Packs/day: How Many Years: Alcohol Use: No Frequency: Quant:
--- NOTE | 2020-10-15 11:56 | HPC ---
[facility] [address] [address] PAIN MANAGEMENT CONSULTATION Name: CHUCK ERVIN Room #: REG [facility]..#: [id number] Admission: 10/15/20 Attend Phys: Elina Lopez Discharge: Date of : 56 Report #: [id number] THIS REPORT FOR: cc: SABA JO MD,SABA Lopez,Elina CHRISTIANSON ~ cc: SABA JO MD, Juma Ervin, DATE OF SERVICE: 10/15/2020 CHIEF COMPLAINT: Right shoulder pain, left knee pain, generalized arthritis. HISTORY OF PRESENT ILLNESS: This is a pleasant 60-year-old female who returns to the pain clinic today for renewal of her medications. Today, she is reporting her pain slightly higher than usual at a 7/10. She reports that she is scheduled today to have rheumatoid injection at [facility] which she is past due for her arthritis. Therefore, today her pain is increased, especially in her knees and hands. She does have ongoing shoulder pain as well as wrist pain that she describes as a chronic aching, throbbing sensation. She does walk with an antalgic gait because her pain is worse with walking, standing activities. She reports using her joints is painful. Overall, she believes that her periodic rheumatoid injections as well as our medications of morphine sulfate twice a day are beneficial. She does report today that the Voltaren gel has been ineffective lately and has not been utilizing that medication. She denies any daytime somnolence or constipation as a result of her opioid medications. ALLERGIES: NONSTEROIDAL ANTI-INFLAMMATORIES AND TYLENOL. CURRENT LIST OF MEDICATIONS: Metformin, morphine sulfate 15 mg b.i.d., Jardiance, Desyrel, prednisone, oxybutynin, Zyrtec, Zestril, Effexor, Plavix. PQRS: 1. Pain score 7/10. 2. Denies dizziness, does not need help walking or standing, has not fallen in the last 3 months. 3. The patient is on Plavix as well as medications for hypertension. 4. Opioid therapy is greater than 6 weeks; therefore, an opioid signed contract is on the chart. 5. Risk assessment is low. Functional assessment is . 6. Recreational drug use, she denies. She is a former smoker and does not currently drink any alcohol. According to the prescription monitoring system, the patient is filling appropriately. She is due to fill her medications today. Her morphine milliequivalent according to the CDC guidelines is 30. There is a urine drug screen on the chart that is appropriate for her medications as well. [address] [address] PAIN MANAGEMENT CONSULTATION Name: CHUCK ERVIN Room #: REG CLReggie Gibson#: [id number] Admission: 10/15/20 Attend Phys: Elina Lopez Discharge: Date of : 56 Report #: [id number] PHYSICAL EXAMINATION: GENERAL: This is alert and orientated, pleasant, well developed, well-nourished, slightly obese 60-year-old female who appears her stated age, rating her pain score today at 7/10. HEENT: Normocephalic, atraumatic. Extraocular eye muscles are intact. She is wearing a mask. EXTREMITIES: No clubbing, no cyanosis, no edema. MUSCULOSKELETAL: She has tenderness over multiple joints of shoulders, elbows, wrists and knees bilaterally. She walks with an antalgic gait, though her lower extremity strength is symmetrical at 5/5. The patient was seated to standing position utilizing the armrest due to being deconditioned. ASSESSMENT: 1. Rheumatoid arthritis. 2. Bilateral shoulder pain. 3. Bilateral shoulder osteoarthritis. 4. Bilateral knee osteoarthritis. 5. Chronic intractable pain. 6. Opioid medication therapy requiring complex scheduled medications. PLAN: 1. We discussed treatment options with the patient today. The patient feels that normally her pain is well controlled with her morphine sulfate twice a day. Today it is elevated due to being late for her rheumatoid arthritis injection. Today, she is scheduled for her Cimzia injection that she gets once a month. They have been rotating some of her arthritic medications and that has caused some flare in her pain. However, we will continue her on her morphine sulfate 15 mg b.i.d. Scripts will be sent electronically by Dr. Ervin for today, 4-week, 8-week releases. 2. The patient reports she is not currently utilizing her Voltaren gel, so we will not continue that at present or her tablets. She will, however, utilize these when she feels the need in the future. 3. The patient will return in 3 months. At that time, we will collect a random drug screen on her again. Time spent with the patient in consultation, reviewing pertinent imaging, reviewing recent studies and clinical notes and physician reports, physical examination and correlation of findings and medical documentation to determine possible treatment options 15 minutes. Time spent in preparation for appointment reviewing prescription monitoring reports, reviewing previous records and proposed treatment options, reviewing current medications 5 minutes. Time spent preparing and sending electronic prescriptions with collaborating [facility] [address] [place] [address] PAIN MANAGEMENT CONSULTATION Name: CHUCK ERVIN Room #: REG CLI LouannTiffanie#: [id number] Admission: 10/15/20 Attend Phys: Elina Lopez Discharge: Date of : 56 Report #: [id number] physician, Dr. Juma Ervin and documentation of visit and plan of treatment 5 minutes. Total time spent 25 minutes. <ELECTRONICALLY SIGNED> By: Elina Lopez 10/15/20 1156 [id number] 1050 Elina Lopez /nt
== END ==
LOC: PAIN 08:47
PROVIDERS: ATTEND Clinical Nurse Specialist Adult Health
DX: M06.9 Rheumatoid arthritis, unspecified (principal); M25.511 Pain in right shoulder; M25.512 Pain in left shoulder; M17.0 Bilateral primary osteoarthritis of knee; G89.4 Chronic pain syndrome; Z79.899 Other long term (current) drug therapy; Z79.891 Long term (current) use of opiate analgesic

== ENCOUNTER → 2020-12-31 | Outpatient (CLI) | payer OTHER, BC ==
[~2020-12-31] VITALS: Ht 160 cm; Wt 82.3 kg
[2020-12-31 09:46] VITALS: BP 103/65
--- NOTE | 2020-12-31 10:04 | NUR ---
Pain Clinic Assessment: 1. History of Osteoarthritis: ALL JOINTS History of Rheumatoid Arthritis: ALL JOINTS 2. Height: 5 ft. 3 in. 160.0 cm. Weight: 181.4 lb. oz. 82.283 kg. Patient's BMI: 32.1 3. Vital Signs: BP: 103/65 Pulse: 74 Resp: 16 Temp: 02 Sat: 98 ECG Mon: 4. Pain Intensity: 4 TODAY; 6 TO 7 WITH MED 5. Fall Risk: Dizziness: N Needs help standing or walking: N Fallen in the last 3 months: N Fall risk comments: 6. Patient on Blood Thinner: PLAVIX 7. History of Hypertension: Y 8. Opioid Therapy greater than 6 weeks: Y Opiate Contract Signed: 11/08/19 9. Risk Assessment Tool Provided: 2-LOW 10. Functional Assessment Tool: 11. Recreational Drug Use: Never Drug Type: Tobacco Use: Former Smoker Tobacco Type: Amount or Packs/day: How Many Years: Alcohol Use: No Frequency: Quant:
--- NOTE | 2021-01-01 08:15 | HPC ---
[facility] [place] [address] PAIN MANAGEMENT CONSULTATION Name: AZIZACHUCK SANDRA Room #: REG [facility].#: [id number] Admission: 12/31/20 Attend Phys: Juma Ervin DO Discharge: Date of : 56 Report #: [id number] THIS REPORT FOR: cc: MICHAEL JO MD, CHADWICK MD Johnson, James E. DO ~ cc: Michael Jo MD DATE OF SERVICE: 12/31/2020 REFERRING PHYSICIAN: Dr. Michael Jo CHIEF COMPLAINT: Right shoulder pain, left knee pain, generalized osteoarthritis. HISTORY OF PRESENT ILLNESS: As you know, the patient is a 60-year-old female returning to the clinic today to discuss treatment options for ongoing pain issues. She continues to participate in daily activities with the right shoulder pain, but has been experiencing increasing left knee pain, which has led to less function and decrease in her daily routine. She states she has been unable to address her left knee issues from an orthopedic standpoint due to the multiple illnesses the patient's has been suffering from of late. She returns today in followup visit to discuss continuation of medication management. She is denying side effects to the medication including sleepiness, disorientation, confusion, mental slowing or constipation. She reports pain levels as high as 7/10, as low as 4/10 with medications. She feels medications are working beneficially despite the elevated pain reports today. She has returned requesting refill on medications at current dosing and discuss treatment options for her left knee pain. ALLERGIES: NONSTEROIDAL ANTI-INFLAMMATORIES, TYLENOL. CURRENT MEDICATIONS: ____ morphine sulfate 15 mg b.i.d., Jardiance, Desyrel, prednisone, oxybutynin, Zyrtec, Zestril, Effexor and Plavix. SOCIAL HISTORY: The patient continues to deny current tobacco use. She is a reformed smoker. Denies IV or illicit drug use. Denies any chronic alcohol use. She is a [id number]-[id number] . She is unaccompanied today. IMAGING: No new imaging available. PQRS: The patient has known arthritic changes of virtually all of the weightbearing joints due to her osteoarthritis and rheumatoid arthritis. She does suffer from rheumatoid arthritis, is receiving treatment. She is placing pain intensity today at 7/10, daily average up to 4/10. She is not a fall risk, has not had a fall in the last 3 months. She is on blood thinners in the form of Plavix. She is treated for hypertension. She is on chronic opioids, has a [facility] [address] [place] [address] PAIN MANAGEMENT CONSULTATION Name: CHUCK ERVIN Room #: REG CLI M.Kristy.#: [id number] Admission: 12/31/20 Attend Phys: Juma Ervin DO Discharge: Date of : 56 Report #: [id number] low opioid addiction potential based on assessment tool. Pain impact is 12/70, indicating mild interference of daily activities secondary to pain. PHYSICAL EXAMINATION: VITAL SIGNS: Blood pressure 103/65, pulse 74, respiratory rate 16 and unlabored. The patient is 98% on room air. Height 5 feet 3 inches tall, weight 181.4 pounds, BMI calculated 32.1. GENERAL: Well-developed, well-nourished, well-hydrated 60-year-old female, appears stated age. Pain is rated today at 7/10. HEENT: Normocephalic, atraumatic. Pupils equal, round and responsive. She is wearing a mask in compliance with COVID-19 regulations. EXTREMITIES: Show no clubbing, no cyanosis. No appreciable edema. MUSCULOSKELETAL: Active and passive range of motion of the left knee is met with increasing pain. There is no laxity of the lateral or medial collateral ligaments. Drawer tests are negative. Tenderness to palpation of multiple joints consistent with rheumatoid arthritis. ASSESSMENT: 1. Rheumatoid arthritis with generalized pain disorder. 2. Bilateral shoulder pain. 3. Bilateral shoulder osteoarthritis. 4. Bilateral knee pain, left greater than right. 5. Chronic intractable pain. 6. Opioid medication management with complicated treatment. PLAN: 1. The patient returns today in followup visit, where we have discussed at length her ongoing left knee pain. The patient has begun to reduce her activities and functions as well as things she likes to do because of this ongoing knee issue. She has been advised a total knee arthroplasty would be recommended, though she is trying to avoid this at all cost. We had discussed with the patient today that the fact that she is now having to sacrifice lifestyle and the things she wants to do because of knee pain would indicate that a total knee arthroplasty would be indicated. The patient is going to consider this option. She states that the timing of the procedure is difficult, though given the fact that she is losing activities of daily living because of the knee pain, I think she should reconsider this option. She will be discussing this with her orthopedic surgeon. 2. We reviewed the fact that opiate medications are being used to provide analgesia adequate to support activities of daily living, not attempting to achieve a specific pain score on the 0-10 Visual Analog Scale. The current opiate medications are providing sufficient analgesia to allow the patient to participate in activities of daily living. The patient is not exhibiting any aberrant behavior suggestive of drug diversion. The patient is not having any adverse reactions to medications. The patient is not suffering from daytime somnolence or mental acuity changes. The patient is managing opiate-induced [facility] [address] [place] [address] PAIN MANAGEMENT CONSULTATION Name: AZIZACHUCK Room #: REG [facility]#: [id number] Admission: 12/31/20 Attend Phys: Juma Ervin DO Discharge: Date of : 56 Report #: [id number] constipation with appropriate lptb-[id number]-[id number] agents and dietary considerations. The patient was counseled on concern for caution with operating a motor vehicle while using opiate medications. A physical exam was performed and the patient's functional status was evaluated. All patients with back pain were advised against the bed rest greater than 4 days and were advised to return to normal activities. Pain score assessment was noted and the treatment plan was reviewed with the patient. All current medications, both prescribed and OTC were reviewed and reconciled on the electronic medical record. Tobacco screening was accomplished and smoking cessation was advised when indicated. BMI was noted and diet/exercise modification was recommended for all patients following outside normal parameters. I reviewed with the patient today their responsibilities to safeguard prescription medications, reviewed their responsibility to utilize medications only as prescribed by the physician. They are to seek and receive pain medications only from 1 physician group ([facility]). They are to use 1 pharmacy and keep the clinic informed if they change pharmacies. Their responsibilities include making followup visits in a timely fashion and to avoid abrupt discontinuation of medication usage. Their responsibilities further include bringing their medications (bottles from the pharmacy with residual pills) to the visit for possible confirmation of pill counts and the patient understands it is their responsibility to submit to random drug screens to ensure both that the medications prescribed are present, and that no other controlled substances are present. All prescriptions provided today were generated electronically. 3. The patient was provided a prescription of MS Contin 15 mg dose 1 tab p.o. b.i.d. I have given the patient #60 tablets to release today, 4 weeks from today and 8 weeks from today, 3 months' worth of medication. All prescriptions sent via e-scribe to local pharmacy. 4. We plan to see the patient back in followup visit in 3 months for medication management. I did advise the patient if she wishes to return to undergo left intraarticular knee injections, we would be more than willing to provide those and that might provide some further benefit. She will consider this option. Contact our clinic if she wishes to avail herself of that treatment. <ELECTRONICALLY SIGNED> By: Juma Ervin DO 01/01/21 0815 [id number] Juma Ervin DO /nt
== END ==
LOC: PAIN 09:32
PROVIDERS: ATTEND Anesthesiology Pain Medicine
DX: M19.012 Primary osteoarthritis, left shoulder (principal); M19.011 Primary osteoarthritis, right shoulder; M25.561 Pain in right knee; M25.562 Pain in left knee; M06.8A Other specified rheumatoid arthritis, other specified site; G89.29 Other chronic pain; Z88.8 Allergy status to other drugs, medicaments and biological substances; Z79.899 Other long term (current) drug therapy